=== PATIENT | female | born 1935 | race Asian ===

== ENCOUNTER 2017-06-06 11:55 | Inpatient (IN) | payer MEDICARE, OTHER ==
[~2017-06-06] VITALS: Ht 157.5 cm; Wt 46.3 kg
[2017-06-06 11:59] VITALS: BP 178/71; PULSE 64; RESP 17; O2SAT 98
--- NOTE | 2017-06-06 12:05 | ED.REPORT ---
HPI-Extremity Problem Lower Date of Service Jun 06, 2017 ED Provider: History of Present Illness: 81-year-old female here for right hip pain. 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 She states she was not dizzy, she tripped over a concrete. She has never fractured her hip, pelvis, or femur in the past. She has no known history of osteoporosis. She has pain in her lateral and medial upper thigh. Denies numbness or tingling or loss of bowel and bladder. No back pain. PCP Dr. Campbell in [place]. Last ate 8 AM. Nursing Notes Stated Complaint: GL FALL HIP PAIN Nursing Notes Reviewed: Yes Allergies: Coded Allergies: atenolol (Verified Allergy, Severe, tongue swelling, 06/06/17) Contrast Media (Verified Allergy, Unknown, STATES WAS TOLD BY STAFF SHE HAD REACTION TO PO CONTRAST, 06/06/17) Uncoded Allergies: UNKNOWN (Allergy, Unknown, 06/06/17) Scheduled Amlodipine (Amlodipine) 5 Mg Tablet 5 MG PO HS PLEASE CRUSH AND GIVE W/ APPLESAUCE Aspirin Chew (Aspirin Chew) 81 Mg Chew 81 MG PO HS PLEASE CRUSH AND GIVE W/ APPLESAUCE Clonidine (Clonidine) 0.1 Mg Tablet 0.1 MG PO HS PLEASE CRUSH AND GIVE W/ APPLESAUCE Cyanocobalamin (Vitamin B-12) (Vitamin B-12) 1,000 Mcg/1 Ml Drops 1,000 MCG PO QAM Hydrochlorothiazide (Hydrochlorothiazide) 25 Mg Tablet 25 MG PO QAM PLEASE CRUSH AND GIVE W/ APPLESAUCE Lisinopril (Lisinopril) 40 Mg Tablet 40 MG PO QAM PLEASE CRUSH AND GIVE W/ APPLESAUCE Metformin (Metformin) 500 Mg Tablet 500 MG PO BIDWM PLEASE CRUSH AND GIVE W/ APPLESAUCE Metoprolol Tartrate (Metoprolol Tartrate) 25 Mg Tablet 12.5 MG PO QAM PLEASE CRUSH AND GIVE W/ APPLESAUCE Pediatric Multivit Comb No.42 (Flintstones) 1 Each Tab.chew 1 EACH PO QAM PLEASE CRUSH AND GIVE W/ APPLESAUCE Potassium Chloride ER (Potassium Chloride ER) 10 Meq Tablet 10 MEQ PO BIDWM PLEASE CRUSH AND GIVE W/ APPLESAUCE Scheduled PRN Fluticasone Propionate (Fluticasone Propionate) 50 Mcg/Actuation [place].susp 1 SPRAY NS DAILY PRN PRN RHIN[place]A General Time Seen by MD: 11:59 Chief Complaint Hip injury right Hx Obtained From: Patient Arrived By: Ambulance Onset Occurred: Just prior to arrival Symptom Duration: Constant Caused by: Fall on ground Location: : Hip right Severity: Current: Moderate Severity: Maximum: Severe Pertinent Negative: Pt denies other symptoms Exacerbated by: Range of motion Recent Healthcare: No recent doctor visit Similar Sx Previous: No Past Medical History Past Medical History Notes: stomach ca- stomach removed 10/2016, HTN, DM, rapid heart rate Review of Systems Basic Review of Systems Respiratory: No shortness of breath Cardiovascular: No chest pain GI: No abdominal pain Psychiatric: Normal thought content Constitutional: Denies: Fatigue Musculoskeletal: Reports: Extremity pain, Joint pain, Denies: Back pain, Extremity swelling, Lumbar pain Neurologic: Denies: Change LOC, Confusion, Dizziness, Headache, Lightheaded Complete sys rev & neg: except as marked. Eyes: Denies: Blurred bilateral Cardiovascular: Denies: Chest pain, Dyspnea on exertion GI: Denies: Abdominal pain Physical Exam Initial Vital Signs Vital Signs (First) Date Time Temp Pulse Resp B/P Pulse Ox O2 Delivery O2 Flow Rate FiO2 06/06/17 11:59 36.7 64 17 178/71 98 Room Air Initial VS: Reviewed, Vital signs normal General/Constitutional: Well-developed, Well-nourished Head / Eyes: Atraumatic, Normocephalic, PERRL Neck: Supple, Non-tender, Full range of motion Respiratory: Breath sounds normal, Clear to auscultation, No respiratory distress Cardiovascular: Regular rate & rhythm, Intact distal pulses Abdomen / GI: Soft, Non-tender, No guarding, No rebound, No distention Skin: Warm, Dry, No cyanosis Neurologic: Alert, Oriented, Nonfocal Psychiatric: Mood/affect normal, Behavior normal, Normal thought content Pelvis: Positive: Tender anterior Right Hip: Positive: Leg externally rotated, Leg shortened, ROM reduced..., Tenderness present... (Severe), Unable to bear weight, Negative: Ecchymosis present, Erythema present, Warmth present Left Thigh: Positive: Tenderness present... (Moderate) Joint above & below: affected area is NL. Heart Sounds / Murmur: Positive: Murmur present... (III/), Systolic murmur present.. (III/) Skin: Color NL, Warm, Dry, Intact, Turgor NL, No swelling Neurologic: Oriented X3, Speech NL, No motor deficits, No sensory deficits Interpretation & Diagnostics Lab Results Interpretation Result Diagram: 06/06/17 1219 06/06/17 1219 Test 06/06/17 12:18 06/06/17 12:19 06/06/17 13:15 Hold Purple Top Tube Received (Received) Hold Blue Top Tube Received (Received) Hold [place] Top Tube Received (Received) White Blood Count 8.5th/mm3 (3.8-10.1) Red Blood Count 4.55mil/mm3 (3.90-5.20) Hemoglobin 14.1g/dL (12.0-15.6) Hematocrit 42.4% (35.0-46.0) Mean Corpuscular Volume 93.2fL (81-100) Mean Corpuscular Hemoglobin 31.0pg (27.0-35.0) Mean Corpuscular Hemoglobin Concent 33.3% (32.0-37.0) Red Cell Distribution Width 12.0% (12.3-15.4) Platelet Count 294bil/L (150-400) Neutrophils (%) (Auto) 51.3% (40-74) Lymphocytes (%) (Auto) 31.7% (14-46) Monocytes (%) (Auto) 10.8% (4-12) Eosinophils (%) (Auto) 5.2% (0-5) Basophils (%) (Auto) 0.5% (0-3) Sodium Level 141mEq/L (134-144) Potassium Level 3.8mEq/L (3.5-5.2) Chloride Level 102mEq/L (97-108) Carbon Dioxide Level 26mmol/L (18-29) Blood Urea Nitrogen 19mg/dL (8-27) Creatinine 0.46mg/dL (0.57-1.00) Estimat Glomerular Filtration Rate 187mL/min (>59) Glucose Level 99mg/dL (60-99) Calcium Level 9.8mg/dL (8.5-10.1) Total Bilirubin 0.4mg/dL (0.0-1.2) Aspartate Amino Transf (AST/SGOT) 24U/L (0-50) Alanine Aminotransferase (ALT/SGPT) 19U/L (0-32) Alkaline Phosphatase 89U/L (25-165) Total Protein 8.0g/dL (6.4-8.4) Albumin 4.5g/dL (3.4-5.0) Hold Urine Received (Received) ECG Interpretation ECG Interpretation: Sinus rate 62 Old Q-waves in lead 3, AVF old inferior infarct Time: 14:29 Interpreted by: ED physician X-Ray Chest Interpretation Chest Xray Interpretation: PROCEDURE: X-RAY CHEST ONE VIEW ([id number]) INDICATIONS: PRE OP TECHNIQUE: One view of the chest was acquired. COMPARISON: None. FINDINGS: Surgical changes and devices: None. Lungs and pleura: No pleural effusions or pneumothorax. Lungs are clear. Mediastinum: Mediastinal contours appear normal. Heart size is normal. Bones and chest wall: No suspicious bony lesions. Overlying soft tissues appear unremarkable. IMPRESSION: No acute process. X-Ray Interpretation Xray Interpretation: PROCEDURE: X-RAY RIGHT HIP COMPLETE, MINIMUM TWO VIEWS ([id number]) INDICATIONS: pain TECHNIQUE: 2 views of the hip were acquired. COMPARISON: None. FINDINGS: Bones: Moderately displaced right femoral neck fracture. Soft tissues: No suspicious soft tissue calcifications or masses. IMPRESSION: Right femoral neck fracture. Re-Eval/Medical Decision Re-Evaluation/Progress : Time of Eval: 14:15 Re-Evaluation/Progress Note: Discussed plan for admission and possible surgery. Patient understands and agrees with plan. All questions addressed at this time. 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 Consultation #2: Referral / Consult Name: Srikanth Reyna MD Consulted With: Orthopedic Call Returned at: 16:47 Door Closer Mechanic: Will see patient, Agrees with plan, Requested OR Counseled Regarding: Diagnosis, Lab results, Need for admission Discharge & Departure Impression: Primary Impression: Hip fracture, right Encounter type: initial encounter Fracture type: closed Qualified Code: S72.001A - Fracture of unspecified part of neck of right femur, initial encounter for closed fracture Disposition: ADMITTED TO HOSPITAL Discharge Condition All VS Reviewed: Yes Condition: Stable Referrals: Tamra Campbell MD (PCP) copies to: Tamra Campbell MD, Linnea K ARNP Jun 06, 2017 12:05 DANIA SANTO Jun 06, 2017 14:31 MARTHA VILLALPANDO Jun 06, 2017 15:22
[2017-06-06 12:29] LABS: BASOPHILS % (AUTO) 0.5 % (0-3); EOSINOPHILS % (AUTO) 5.2 % (0-5); MONOCYTES % (AUTO) 10.8 % (4-12); Mean Corpuscular Volume 93.2 fL (81-100); NEUTROPHILS % (AUTO) 51.3 % (40-74); Platelet Count 294 bil/L (150-400)
--- NOTE | 2017-06-06 12:44 | DRSVH ---
PROCEDURE: X-RAY RIGHT HIP COMPLETE, MINIMUM TWO VIEWS ([id number]) INDICATIONS: pain TECHNIQUE: 2 views of the hip were acquired. COMPARISON: None. FINDINGS: Bones: Moderately displaced right femoral neck fracture. Soft tissues: No suspicious soft tissue calcifications or masses. IMPRESSION: Right femoral neck fracture. Dictated by: Jere Weaver M.D. on 06/06/2017 at 12:42 Approved by: Jere Weaver M.D. on 06/06/2017 at 12:43
--- NOTE | 2017-06-06 12:45 | DRSVH ---
PROCEDURE: X-RAY CHEST ONE VIEW ([id number]) INDICATIONS: PRE OP TECHNIQUE: One view of the chest was acquired. COMPARISON: None. FINDINGS: Surgical changes and devices: None. Lungs and pleura: No pleural effusions or pneumothorax. Lungs are clear. Mediastinum: Mediastinal contours appear normal. Heart size is normal. Bones and chest wall: No suspicious bony lesions. Overlying soft tissues appear unremarkable. IMPRESSION: No acute process. Dictated by: Jere Weaver M.D. on 06/06/2017 at 12:43 Approved by: Jere Weaver M.D. on 06/06/2017 at 12:43
[2017-06-06] MEDS ORDERED: fentaNYL-PF 50 mCg/mL 2 mL Inj IVPUSH ONE (13:00)
[2017-06-06 13:35] VITALS: BP 176/69; PULSE 68; RESP 17; O2SAT 97
[2017-06-06] MEDS ORDERED: HYDR25TA4 PO (14:39)
[2017-06-06] MEDS ORDERED: CLON0.1T PO (14:39)
[2017-06-06] MEDS ORDERED: PEDI1TAB PO (14:39)
[2017-06-06] MEDS ORDERED: LISI40TA PO (14:39)
[2017-06-06] MEDS ORDERED: FLUT15.88 NS (14:39)
[2017-06-06] MEDS ORDERED: POTA10TA12 PO (14:39)
[2017-06-06] MEDS ORDERED: CYAN100085 PO (14:39)
[2017-06-06] MEDS ORDERED: AMLO5TAB2 PO (14:39)
[2017-06-06] MEDS ORDERED: METO25TA6 PO (14:39)
[2017-06-06] MEDS ORDERED: METF500T4 PO (14:39)
[2017-06-06] MEDS ORDERED: ASPI81TA3 PO (14:40)
[2017-06-06] MEDS ORDERED: Ondansetron 2 mg/mL 2 mL Inj IVPUSH PRN (15:15)
[2017-06-06] MEDS ORDERED: Alum-Mag Hydrox-Simeth 30 mL Suspension PO PRN (15:15)
[2017-06-06] MEDS ORDERED: Polyethylene Glycol (PEG) 17 Gm Powder PO PRN (15:15)
[2017-06-06] MEDS: Dextrose 5% 0.45% NaCl 1,000 ML IV SCH ×2 (15:34→23:38)
[2017-06-06 15:35] VITALS: BP 157/74; PULSE 75; RESP 16; O2SAT 95
--- NOTE | 2017-06-06 15:36 | PCM.HPMED ---
Subjective Date of Service Jun 06, 2017 Primary Provider: Admitting Physician: Primary Care Physician: Tamra Campbell MD Attending Physician: Chief Complaint: Hip pain History of Present Illness: 81-year-old female with a history of gastric cancer post gastrectomy last October, hypertension, and diabetes presents to the emergency department after a ground-level fall onto concrete. Per the patient she was carrying a large bucket of water into her friend's house when she tripped on a concrete step and fell on her right hip. She denies any syncope, dizziness, lightheadedness, or hitting her head. She states is the first hip fracture she has suffered but in the past year she has fractured a bone in her lower right extremity, as well as reported fracture in T10. Patient is not on any calcium or vitamin D supplements except for [place] vitamin. She had a recent bone density scan which shows osteopenia and osteoporosis of spine, as well as a 13.9% of major osteoporotic fracture, and a 4.9% chance of hip fracture. Patient denies all other review of systems, including chest pain, racing heartbeat, numbness/ tingling, shortness of breath. In the ED the patient underwent 2 view of the right hip which showed right femoral neck fracture. Dr. Reyna from orthopedics was paged by the emergency department and we currently await a call back. Patient has not eaten since this morning. Review of Systems: Complete review of systems performed; pertinent positives and negatives per history of present illness Allergies Coded Allergies: atenolol (Verified Allergy, Severe, tongue swelling, 06/06/17) Contrast Media (Verified Allergy, Unknown, STATES WAS TOLD BY STAFF SHE HAD REACTION TO PO CONTRAST, 06/06/17) Uncoded Allergies: UNKNOWN (Allergy, Unknown, 06/06/17) Home Medications Amlodipine (Amlodipine) 5 Mg Tablet 5 MG PO HS Aspirin Chew (Aspirin Chew) 81 Mg Chew 81 MG PO HS Clonidine (Clonidine) 0.1 Mg Tablet 0.1 MG PO HS Cyanocobalamin (Vitamin B-12) (Vitamin B-12) 1,000 Mcg/1 Ml Drops 1,000 MCG PO QAM Hydrochlorothiazide (Hydrochlorothiazide) 25 Mg Tablet 25 MG PO QAM Lisinopril (Lisinopril) 40 Mg Tablet 40 MG PO QAM Metformin (Metformin) 500 Mg Tablet 500 MG PO BIDWM Metoprolol Tartrate (Metoprolol Tartrate) 25 Mg Tablet 12.5 MG PO QAM Pediatric Multivit Comb No.42 (Flintstones) 1 Each Tab.chew 1 EACH PO QAM Potassium Chloride ER (Potassium Chloride ER) 10 Meq Tablet 10 MEQ PO BIDWM PMH Stomach cancer, unspecified, S/P gastrectomy October [address] [facility] Hypertension Diabetes mellitus type II on metformin Surgical History Gastrectomy October 2016 Family History Father had prostate and colon cancer Mother had heart disease, stroke, hypertension Sister had ovarian cancer Social History Hx Alcohol Use: No Hx Substance Use: No Hx Tobacco Use: Yes (18-shzz-igng history) Living Arrangement: with Family (at home with her Bill) Exam Vital Signs Vital Sign - Last Date Time Temp Pulse Resp B/P Pulse Ox O2 Delivery O2 Flow Rate FiO2 06/06/17 13:35 68 17 176/69 97 Room Air 06/06/17 11:59 36.7 Exam General: Pleasant appearing female, no acute distress HEENT: PERRLA, EOMI, nonicteric, membranes moist Lymph: No lymphadenopathy Cardio: Regular rate and rhythm; 2/6 systolic murmur Respiratory: CTA bilaterally, no wheezes, no crackles Abdomen: Soft, positive bowel sounds, nontender, nondistended; healed epigastric scar Extremities: No edema, sensation intact; pulses intact throughout; Psych: Appropriate mood and affect Neuro: CN II through XII grossly intact, sensation intact throughout Skin: No rash Musculoskeletal: Mildly tender over the right hip; moderate to severely painful in the right hip on any internal rotation of the right lower extremity Lab and Diagnostics Result Diagram: 06/06/17 1219 06/06/17 1219 X-Rays, CTs and MRIs X-ray right hip 2 view IMPRESSION: Right femoral neck fracture. Dictated by: Jere Weaver M.D. on 06/06/2017 at 12:42 chest x-ray Chest x-ray IMPRESSION: No acute process. Dictated by: Jere Weaver M.D. on 06/06/2017 at 12:43 12-lead ECG Sinus rhythm without concerning ST waves Assessment & Plan 81-year-old female who presented to the hospital after a ground-level fall onto concrete with confirmed right hip fracture Acute Right hip fracture; was on medicine; ongoing -Confirmed ground-level fall without reported syncope or loss of consciousness -Confirmed by two-view right hip x-ray -Dr. Reyna was paged from the ED and we await his call back -Patient currently nothing by mouth; last ate at 8 AM -Acetaminophen for mild pain, morphine for moderate -Await surgical evaluation -Bedrest -Currently not on DVT prophylaxis due to possibility for surgery today -Vit D levels ordered Hypertension, chronic; is on medicine; ongoing -Patient presented with a SBP greater than 170 due to pain -Patient takes clonidine, amlodipine, hydrochlorothiazide, and lisinopril at home -Continue his medications as confirmed -Labetalol for blood pressure greater than 180 and pulse not less than 70 Diabetes mellitus2; present on admission; stable -Patient takes metformin only as outpatient -No A1c and record; ordered today -Stop metformin -Place patient on low correctional and add basal tomorrow Reported episodes of tachycardia; chronic -Patient is on metoprolol -EKG revealed sinus rhythm with heart rate 62 -Continue metoprolol Disposition: Patient is being admitted to inpatient status with expected length of stay greater than two midnights due to to severity of presentation, duration of treatment, and risks of adverse events Patient is full code until brings in her advanced directives Pain Evaluation: Adequate Pain Control GI Prophylaxis: Not indicated Resuscitation Status: CPR: Attempt Resuscitation Attending Statement Patient seen and examined. Agree with resident's assessment and plan. Santiago Joshi DO Jun 06, 2017 15:36 Reg Ramirez MD Jun 06, 2017 20:25
[2017-06-06 16:05] VITALS: BP 178/95; PULSE 71; RESP 18; O2SAT 98
[2017-06-06] MEDS ORDERED: MeTOProlol 1 mg/mL 5 mL Inj IV PRN (17:15)
[2017-06-06] MEDS ORDERED: Glucose 40% Oral Gel 15 Gm Tube PO PRN (18:20)
--- NOTE | 2017-06-06 18:41 | NUR ---
Admit Pt arrived on unit at 1605 from ED on [facility] [address] [facility], slide board used to transfer pt and she was 10/10 pain afterwards. Repositioned pt, given warm blankets and offered ice, which pt declined. Pain quickly decreased and pt declined medications saying "I'm not hurting unless I move." BP was elevated, but pt has not taken daily BP meds for HTN and was in pain. aware. RA, IV fluids infusing, KHALIL. Pt oriented to room and call light. Care continues.
[2017-06-06 19:28] LABS: APPEARANCE,URINE CLEAR (CLEAR,HAZY); COLOR,URINE STRAW (YELLOW); OCCULT BLOOD,URINE TRACE (NEGATIVE); UROBILINOGEN,URINE NORMAL (NORMAL)
[2017-06-06] MEDS ORDERED: Labetalol 5 mg/mL 4 mL Inj IVPUSH ONE (20:30)
[2017-06-06] MEDS: cloNIDine 0.1 mg Tablet PO SCH (20:35)
[2017-06-06 21:25] VITALS: BP_SYST 151; BP_SYST 166; BP_DIAS 64; BP_DIAS 74; PULSE 72; PULSE 78; RESP 18; RESP 20; O2SAT 92; O2SAT 93
[2017-06-06] MEDS: Insulin LISPRO 300 Unit/3 mL Inj SUBQ SCH (22:00)
[2017-06-07] VITALS (13 sets, daily range): BP systolic 122–199; BP diastolic 65–86; PULSE 60–72; RESP 12–20; O2SAT 95–98
--- NOTE | 2017-06-07 04:35 | NUR ---
Pain pt has declined pain medications all shift. upon assessment she has looked uncomfortable as if she is trying to stay as still as possible. However nurse has offered her pain medication at every rounding and pt has refused. she says she is only in pain if she moves otherwise she is fine. circulation to RLE is intact. pt will be made NPO at 0600 this AM. bed in low position, call light within reach. care continues.
[2017-06-07 05:15] LABS: BASOPHILS % (AUTO) 0.4 % (0-3); EOSINOPHILS % (AUTO) 4.3 % (0-5); MONOCYTES % (AUTO) 9.6 % (4-12); Mean Corpuscular Hemoglobin 30.5 pg (27.0-35.0); Mean Corpuscular Volume 91.4 fL (81-100); NEUTROPHILS % (AUTO) 68.7 % (40-74); Platelet Count 252 bil/L (150-400)
--- NOTE | 2017-06-07 07:43 | PCM.PNMED ---
Subjective Date of Service Jun 07, 2017 Subjective Patient seen and examined today. Anxious to get surgery. Vitals stable. Exam Vital Signs Vital Sign - Last Date Time Temp Pulse Resp B/P Pulse Ox O2 Delivery O2 Flow Rate FiO2 06/07/17 05:05 36.7 66 18 164/83 97 Room Air Intake and Output 06/06/17 06/06/17 06/07/17 Cumulative From/Thru 15:00 23:00 07:00 06/06/17 11:59 - 06/07/17 06:04 Intake Total 288 ml 1300 ml 1588 ml Output Total 1100 ml 2500 ml 3600 ml Balance -812 ml -1200 ml -2012 ml Intake Oral 200 ml 200 ml IV Total 288 ml 1100 ml 1388 ml Output Urine Total 1100 ml 2500 ml 3600 ml Lab and Diagnostics Result Diagram: 06/07/17 0442 06/07/17 0442 X-Rays, CTs and MRIs X-ray right hip 2 view IMPRESSION: Right femoral neck fracture. Dictated by: Jere Weaver M.D. on 06/06/2017 at 12:42 chest x-ray Chest x-ray IMPRESSION: No acute process. Dictated by: Jere Weaver M.D. on 06/06/2017 at 12:43 12-lead ECG Sinus rhythm without concerning ST waves Assessment & Plan 81-year-old female who presented to the hospital after a ground-level fall onto concrete with confirmed right hip fracture Acute Right hip fracture; was on medicine; ongoing -Confirmed ground-level fall without reported syncope or loss of consciousness -Confirmed by two-view right hip x-ray -Dr. Reyna was contacted from ED, awaiting assessment and plan -Patient currently nothing by mouth -Acetaminophen for mild pain, morphine for moderate -Await surgical evaluation -Bedrest -Currently not on DVT prophylaxis due to possibility for surgery today -Vit D levels ordered Hypertension, chronic; is on medicine; ongoing -Patient presented with a SBP greater than 170 due to pain -Patient takes clonidine, amlodipine, hydrochlorothiazide, and lisinopril at home -Continue his medications as confirmed -Metoprolol for blood pressure greater than 180 and pulse not less than 70 Diabetes mellitus2; present on admission; stable -Patient takes metformin only as outpatient -No A1c and record; ordered today -Stop metformin -Place patient on low correctional and add basal tomorrow Reported episodes of tachycardia; chronic -Patient is on metoprolol -EKG revealed sinus rhythm with heart rate 62 -Continue metoprolol Asymptomatic bacteriuria - patient asymptomatic - wbc count in urine low - will observe Disposition: Patient is being admitted to inpatient status with expected length of stay greater than two midnights due to to severity of presentation, duration of treatment, and risks of adverse events Patient is full code until brings in her advanced directives Pain Evaluation: Adequate Pain Control GI Prophylaxis: Not indicated Resuscitation Status: CPR: Attempt Resuscitation Time spent 35 mins Reg Ramirez MD Jun 07, 2017 07:43
[2017-06-07] MEDS: Insulin LISPRO 300 Unit/3 mL Inj SUBQ SCH ×4 (07:52→22:00)
[2017-06-07] MEDS: Dextrose 5% 0.45% NaCl 1,000 ML IV SCH (08:03)
[2017-06-07] MEDS ORDERED: Propofol 10,000 mCg/mL 20 mL Inj ONE (08:12)
[2017-06-07] MEDS ORDERED: Dexamethasone 4 mg/mL Inj ONE (08:12)
[2017-06-07] MEDS ORDERED: Ondansetron 2 mg/mL 2 mL Inj ONE (08:12)
[2017-06-07] MEDS ORDERED: fentaNYL-PF 50 mCg/mL 2 mL Inj ONE (08:12)
--- NOTE | 2017-06-07 14:26 | NUR ---
Off unit Preparing pt to go off unit and BP was taken 199/88. Called OR to notify and anesthesiologist notified. Pt s/l and report given to OR, RN. Pt having no pain unless moved and declines medications, she is very worried about getting addicted to pain meds. Educated pt this AM about that. A&O x 3, SIMRAN.
--- NOTE | 2017-06-07 15:06 | PCM.HPANE ---
Patient Data Date of Service: Jun 07, 2017 Surgeon Admitting Provider:Reg Ramirez MD Attending Provider:Reg Ramirez MD Primary Care Physician:Tamra Campbell MD Other Provider: Reason for Visit Left Hip Fx Ht/WT & BMI Height (Feet): 5 Height (Inches): 2.00 Weight (Kilograms): 46.266 Body Mass Index 18.77 Allergies Coded Allergies: atenolol (Verified Allergy, Severe, tongue swelling, 06/06/17) Contrast Media (Verified Allergy, Unknown, STATES WAS TOLD BY STAFF SHE HAD REACTION TO PO CONTRAST, 06/06/17) Uncoded Allergies: UNKNOWN (Allergy, Unknown, 06/06/17) Past Anesthesia History Anesthesia History: Denies:: Abnormal Airway, Anesthesia Reactions, Difficult Intubation, Fam Anesthesia Reaction, Fam Malignant Hypertherm, Malignant Hyperthermia Diabetes History Hx Diabetes?: Yes (II) Current Bedside Blood Glucose: 119 MRSA MRSA: No Medications Hypertension Medication: Yes Home Meds Incl Beta Vesna: Yes Date Beta Vesna Taken: Jun 07, 2017 Time Beta Vesna Taken: 08:00 Reported Medications Aspirin Chew 81 Mg Chew81 Mg PO HS Ref 0 PLEASE CRUSH AND GIVE W/ APPLESAUCE 06/06/17 Pediatric Multivit Comb No.42 (Flintstones)1 Each Tab.chew1 Each PO QAM PLEASE CRUSH AND GIVE W/ APPLESAUCE 06/06/17 Cyanocobalamin (Vitamin B-12) (Vitamin B-12)1,000 Mcg/1 Ml Drops1,000 Mcg PO QAM 06/06/17 Lisinopril 40 Mg [id number] Mg PO QAM 30 Days Ref 0 PLEASE CRUSH AND GIVE W/ APPLESAUCE 06/06/17 Metoprolol Tartrate 25 Mg Naggkl28.5 Mg PO QAM 30 Days Ref 0 PLEASE CRUSH AND GIVE W/ APPLESAUCE 06/06/17 Hydrochlorothiazide 25 Mg [id number] Mg PO QAM 30 Days Ref 0 PLEASE CRUSH AND GIVE W/ APPLESAUCE 06/06/17 Potassium Chloride ER 10 Meq [id number] Meq PO BIDWM Ref 0 PLEASE CRUSH AND GIVE W/ APPLESAUCE 06/06/17 Metformin 500 Mg [id number] Mg PO BIDWM Ref 0 PLEASE CRUSH AND GIVE W/ APPLESAUCE 06/06/17 Fluticasone Propionate 50 Mcg/Actuation Rolling[place].susp1 [place] NS DAILY PRN RHINOREA 06/06/17 Clonidine 0.1 Mg Tablet0.1 Mg PO HS Ref 0 PLEASE CRUSH AND GIVE W/ APPLESAUCE 06/06/17 Amlodipine 5 Mg Tablet5 Mg PO HS Ref 0 PLEASE CRUSH AND GIVE W/ APPLESAUCE 06/06/17 History History of ENT Problems?: No HEENT History: Denies:: Abnormal Airway Cataracts Difficult Intubation Dysphagia Glaucoma Hearing Problem Sinus Problem Denture Type: None Teeth Condition: Within Normal Limits Hx of Heart Problems?: No Cardiovascular History: Positive for:: Heart Murmur Hypertension Denies:: Cardiac Surgery Congestive Heart Failure Pacemaker Hx of Respiratory Problem?: No Respiratory History: Denies:: Asthma COPD Tuberculosis Hx Neurologic Problems?: No Neurological History: Denies:: CVA Dementia Headaches Seizures Hx of GI Problems?: No Other GI Pertinent History: 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, 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 Hx of Problems?: No Genitourinary History: Denies:: HX of Hemodialysis Kidney Stones Urinary Tract Infection HX of Peritoneal Dialysis: No Female Hx: Denies:: Currently Hx Musculoskeletal Problems?: No Musculoskeletal History: Positive for:: Back Injury (2 months ago) Denies:: Joint Replacement Psycho Social History: Positive for:: Anxiety Denies:: Hx Depression Suicide Attempt Hx Surgeries?: Yes (stomach surgery) Hx Any Other Health Problems?: Yes Other History: 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 Denies:: Blood Transfusions Hx Diabetes: Yes (II)Bedside Blood Glucose: 119 Hx Alcohol Use: NoHx Substance Use: No Stop/Bang Treated for Sleep Apnea?: No S-Snoring: Do You Snore Loudly: No T-Tired: feel tired, fatigued: Yes O-Obsered: Observed not breath: No P-Blood Pressure: treated: Yes B- Body Mass Index > 35 kg/m2: No A- Age over 50: Yes N- Neck Large Circumference: No G- Gender Male: No NADEEN Total Score: 2 NADEEN Risk Assessment: Low Risk, <3 Yes Risk Assessment Category Category 1A: Patient has history of documented sleep apnea, and HAS NOT received any narcotic, sedative or anesthesia administration during this stay. Category 1B: Patient has history of documented sleep apnea, and HAS received any narcotic , sedative or anesthesia administration during this stay Category 2: Patient has SUSPECTED Obstructive Sleep Apnea, and HAS received any narcotic , sedative or anesthesia administration during this stay. Category 3: Patient has SUSPECTED Obstructive Sleep Apnea and HAS NOT received narcotic, sedative or anesthesia administration during this stay. Category 4: Outpatient in Procedural Areas with known sleep apnea or who screen positive for High Risk via the STOP/BANG questionnaire. Exam Exam Vital Signs Vital Signs Date Time Temp Pulse Resp B/P Pulse Ox O2 Delivery O2 Flow Rate FiO2 06/07/17 08:18 160/77 General Appearance: Alert, Oriented X3, Cooperative, No Acute Distress HEENT/AIRWAY: MP 2 Lungs: Normal Air Movement Heart: Exam Unremarkable Meds/Labs/Diagnostics Admission Meds Current Medications Dextrose/Sodium Chloride (D5 1/2 Normal Saline) 1,000 ml @ 125 mls/hr Q8H IV Last administered on 06/07/17 08:03; Start 06/06/17 at 15:20 Amlodipine Besylate (Norvasc) 5 mg HS PO Last administered on 06/06/17 20:35; Start 06/06/17 at 21:00 Aspirin (Aspirin Chewable) 81 mg HS PO Last administered on 06/06/17 20:35; Start 06/06/17 at 21:00 Clonidine (Catapres) 0.1 mg HS PO Last administered on 06/06/17 20:35; Start 06/06/17 at 21:00 Hydrochlorothiazide (Hydrodiuril) 25 mg DAILY PO Last administered on 08:03; Start 06/07/17 at 08:30 Lisinopril (Zestril) 40 mg DAILY PO Last administered on 06/07/17 08:03; Start 06/06/17 at 18:44 Metoprolol Tartrate (Lopressor) 12.5 mg DAILY PO Last administered on 08:03; Start 06/06/17 at 18:44 Bedside Blood Glucose: 119 Labs Test 06/06/17 12:18 06/06/17 13:15 06/06/17 19:07 06/07/17 04:42 Hold Purple Top Tube Received (Received) Hold Blue Top Tube Received (Received) Hold [place] Top Tube Received (Received) Hold Urine Received (Received) Urine Color Straw (YELLOW) Urine Appearance Clear (CLEAR,HAZY) Urine pH 7.0 (5.0-8.0) Urine Specific [place] 1.005 (1.003-1.035) Urine Protein Negativemg/dL (NEG,TRACE) Urine Glucose (UA) 1000mg/dL (NEGATIVE) Urine Ketones Negativemg/dL (NEGATIVE) Urine Occult Blood Trace (NEGATIVE) Urine Nitrite Negative (NEGATIVE) Urine Bilirubin Negative (NEGATIVE) Urine Urobilinogen Normalmg/dL (NORMAL) Urine Leukocyte Esterase Small (NEGATIVE) Urine RBC 3-10/hpf (0-2) Urine WBC 6-10/hpf (0-5) Urine Epithelial Cells Occasional/hpf (NONE-MOD) Urine Crystals None seen (NONE SEEN) Urine Bacteria Few/hpf (NONE-FEW) Urine Hyaline Casts None/lpf (NONE) Urine Granular Casts None seen (NONE SEEN) Urine Waxy Casts None seen (NONE SEEN) Urine Red Blood Cell Casts None seen (NONE SEEN) Urine White Blood Cell Casts None seen (NONE SEEN) Urine Mucus None seen (None Seen) Urine Trichomonas None seen (NONE SEEN) Urine Yeast None (NONE SEEN) Urinalysis Comment None Urine Culture Reflexed Indicated White Blood Count 8.9th/mm3 (3.8-10.1) Red Blood Count 4.30mil/mm3 (3.90-5.20) Hemoglobin 13.1g/dL (12.0-15.6) Hematocrit 39.3% (35.0-46.0) Mean Corpuscular Volume 91.4fL (81-100) Mean Corpuscular Hemoglobin 30.5pg (27.0-35.0) Mean Corpuscular Hemoglobin Concent 33.3% (32.0-37.0) Red Cell Distribution Width 12.0% (12.3-15.4) Platelet Count 252bil/L (150-400) Neutrophils (%) (Auto) 68.7% (40-74) Lymphocytes (%) (Auto) 16.8% (14-46) Monocytes (%) (Auto) 9.6% (4-12) Eosinophils (%) (Auto) 4.3% (0-5) Basophils (%) (Auto) 0.4% (0-3) Sodium Level 140mEq/L (134-144) Potassium Level 3.5mEq/L (3.5-5.2) Chloride Level 103mEq/L (97-108) Carbon Dioxide Level 25mmol/L (18-29) Blood Urea Nitrogen 8mg/dL (8-27) Creatinine 0.40mg/dL (0.57-1.00) Estimat Glomerular Filtration Rate 219mL/min (>59) Glucose Level 137mg/dL (60-99) Calcium Level 9.3mg/dL (8.5-10.1) Magnesium Level 1.7mg/dL (1.6-2.6) Total Bilirubin 0.7mg/dL (0.0-1.2) Aspartate Amino Transf (AST/SGOT) 16U/L (0-50) Alanine Aminotransferase (ALT/SGPT) 15U/L (0-32) Alkaline Phosphatase 77U/L (25-165) Total Protein 6.6g/dL (6.4-8.4) Albumin 3.9g/dL (3.4-5.0) Plan Impression Patient chart reviewed, patient interviewed and anesthestic plan with risks, benefits, and alternatives discussed, and informed consent obtained. NPO per Anesth. Guidelines: Yes ASA Physical Status: ASA2 Mod Systemic Disease Anesthetic Plan: GA Bene/Risks/Altern/Consents: Yes HP Complete Prior to Induction: Yes Richard Wang MD Jun 07, 2017 13:33
[2017-06-07] MEDS ORDERED: Lactated Ringer's 500 ML IV PRN (15:09)
[2017-06-07] MEDS ORDERED: Lactated Ringer's 1,000 ML IV SCH (15:09)
[2017-06-07] MEDS ORDERED: Ondansetron 2 mg/mL 2 mL Inj IVPUSH PRN ×2 (15:10→16:30)
[2017-06-07] MEDS ORDERED: MetoCLOpramide 5 mg/mL 2 mL Inj IVPUSH PRN ×2 (15:10→16:30)
[2017-06-07] MEDS ORDERED: Labetalol 5 mg/mL 4 mL Inj IV PRN (15:10)
[2017-06-07] MEDS ORDERED: HYDROmorphone 1 mg/mL Inj IVPUSH PRN (15:10)
[2017-06-07] MEDS ORDERED: Atropine 0.4 mg/mL Inj IVPUSH PRN (15:10)
[2017-06-07] MEDS ORDERED: Dexamethasone 4 mg/mL Inj IVPUSH PRN (15:10)
[2017-06-07] MEDS ORDERED: fentaNYL-PF 50 mCg/mL 2 mL Inj IVPUSH PRN (15:10)
[2017-06-07] MEDS ORDERED: EPHEDrine Sulfate 50 mg/mL Inj IVPUSH PRN (15:10)
[2017-06-07] MEDS ORDERED: Lactated Ringer's 1,000 ML IV ONE (15:10)
[2017-06-07] MEDS ORDERED: Phenylephrine 10,000 mCg/mL Inj IVPUSH PRN (15:10)
[2017-06-07] MEDS ORDERED: Tranexamic Acid 100 mg/mL 10 mL Inj ONE ×2 (15:33→15:35)
[2017-06-07] MEDS ORDERED: 0.9% Sodium Chloride 100 ML ONE ×2 (15:33→15:35)
[2017-06-07] MEDS ORDERED: Bupivacaine-MPF 0.25%/EPI 30 mL Inj INFILTRATE ONE (16:17)
[2017-06-07] MEDS ORDERED: Polyethylene Glycol (PEG) 17 Gm Powder PO PRN (16:30)
[2017-06-07] MEDS ORDERED: Magnesium Hydroxide 10 mL Oral Concentration PO PRN (16:30)
[2017-06-07] MEDS ORDERED: Vancomycin Dose per Pharmacist XX ONE (16:30)
[2017-06-07] MEDS ORDERED: diphenhydrAMINE 25 mg Capsule PO PRN (16:30)
[2017-06-07] MEDS ORDERED: Sodium Biphos-Phos 133 mL Enema RECTAL PRN (16:30)
[2017-06-07] MEDS ORDERED: Ketorolac 15 mg/mL Inj IVPUSH PRN (16:30)
[2017-06-07] MEDS ORDERED: HYDROcodone-APAP 5-325 mg Tablet PO PRN (16:30)
--- NOTE | 2017-06-07 16:47 | PCM.ANEP1 ---
Post Anesthesia PACU Phase 1 Assessment Date of Service: Jun 07, 2017 Vital Signs Vital Signs Date Time Temp Pulse Resp B/P Pulse Ox O2 Delivery O2 Flow Rate FiO2 06/07/17 14:33 36.8 66 16 199/86 96 Room Air Anesthetic Administered: GA Level of Alertness: Sleeping, hard to arouse Pain: No Pain Scale Score: 0 Nausea or Vomiting: No CV Function & Hydration Stable: Yes Airway Device: Oxygen Delivery: Nasal Cannula Lungs: Normal Air Movement PACU Phase 2 Assessment Complications: No Follow up Care: N/A Patient Instructions Provided: N/A Richard Wang MD Jun 07, 2017 16:47
[2017-06-07] MEDS ORDERED: HYDROmorphone 0.5 mg/0.5 mL iSecure Syringe IVPUSH PRN (17:05)
[2017-06-07] MEDS ORDERED: Vancomycin Inj 750 MG in 0.9% Sodium Chloride 250 ML IV ONE (17:10)
--- NOTE | 2017-06-07 17:42 | DRSVH ---
PROCEDURE: X-RAY PELVIS ONE OR TWO VIEWS ([id number]) INDICATIONS: 81 year-old female status post right hip hemiarthroplasty. TECHNIQUE: 1 view of the lower pelvis acquired. COMPARISON: [facility], CR, XR HIP 2VW RT, 06/06/2017, 12:20. FINDINGS: Bones: Patient is status post noncemented right hip jed-arthroplasty, with hardware components in e xpected positions. The hip joint appears congruent. The visualized bony structures appear intact. Soft tissues: Overlying postoperative changes are noted. No suspicious soft tissue densities. IMPRESSION: Status post right hip hemiarthroplasty for femoral neck fracture, with hardware component s in expected positions. Dictated by: Juancarlos Ruvalcaba M.D. on 06/07/2017 at 17:40 Approved by: Juancarlos Ruvalcaba M.D. on 06/07/2017 at 17:41
[2017-06-07] MEDS: Sodium Chloride LOK Flush 10 mL Syringe IV SCH (18:15)
--- NOTE | 2017-06-07 19:37 | NUR ---
Post op Pt arrived on bed at 1807 from PACU. 2L NC, IV with LR infusing, KHALIL, dressing on right hip in CDI. Pt has strong pedal pulse, good cap refill and full sensation in leg with mild tingling. Ice pack in place. Pt A&O x 3, eager to drink fluids. Blood sugar was 145 and called pharmacy for insulin. Pt having pain 05/24, very stoic and worried about getting addicted to medication, so she will decline pain medications. Did pt teaching and she accepted medication. Bed in low, call light in reach, care continues. Addendum: 06/07/17 at 1940 by IRIS ALICEA RN Pt's UA came back positive. notified at AM meeting.
[2017-06-07] MEDS: Acetaminophen IV 1,000 MG in IV Premix 1 EACH IV SCH (20:13)
[2017-06-07] MEDS: cloNIDine 0.1 mg Tablet PO SCH (20:14)
[2017-06-07] MEDS: Senna-Docusate 8.6-50 mg Tablet PO SCH (20:15)
[2017-06-07] MEDS: 0.9% Sodium Chloride 1,000 ML IV SCH (20:22)
--- NOTE | 2017-06-07 21:29 | OP ---
[address] [address] OPERATIVE REPORT PATIENT: SIDDHARTHA CONTRERAS : 1935 MR#: [id number] ADMIT: 06/06/2017 JOB ID: [id number] DATE OF SURGERY: 06/07/2017 PREOPERATIVE DIAGNOSIS(ES): Right femoral neck fracture. POSTOPERATIVE DIAGNOSIS(ES): Right femoral neck fracture. PROCEDURE: Right bipolar hip arthroplasty. SURGEON: Srikanth Reyna MD. EXPERIENCE DESIGNER: Meri Patton PA-C. Research Scientist required due to the complexity of the operation. INDICATIONS: This woman slipped and fell in her garage, suffered a vertically oriented femoral neck fracture. Treatment options discussed. She and the family have elected for a bipolar hip arthroplasty. They understand the potential for risks and complications, which include but is not limited to, infection, thromboembolic, neurovascular events, as well as a potential for leg length inequality, dislocation and implant failure. PROCEDURE IN DETAIL: The patient was placed in a lateral decubitus position on the operative room table. A posterolateral approach was made and dissection was carried down. External rotators were released. Capsule was T'd, tagged, and released. The femoral neck fragment was subsequently dislocated and the intercalated segment was cut. The head was removed from the acetabulum and sized to a 43 outer bearing. Box osteotome and straight reamer utilized on the femoral side. A 4 broach was placed which provided excellent canal filling. Following this, the trial reduction was performed. A -3.5 neck length was chosen which provided excellent soft tissue tension, alignment and length. Wounds were irrigated with sterile irrigant. The final construct was assembled. The stem was seated securely using an taper on cemented stem. Excellent stability was obtained. Construct was assembled. The hip was dislocated and was noted to be very stable. Wounds were irrigated with sterile irrigant. The capsule was closed to the trochanter as well as the external rotators. Deep fascia was closed with #2 Quill followed by a 2-0 Vicryl, 3-0, and a 4-0 intracuticular stitch. Steri-Strips were applied. The patient was returned to the recovery room in stable condition. She tolerated the procedure well. There were no complications. Standard postoperative course recommended.
[2017-06-08 00:08] LABS: Hemoglobin A1C 5.6 % (4.8-5.6)
[2017-06-08] MEDS: Acetaminophen IV 1,000 MG in IV Premix 1 EACH IV SCH ×4 (00:19→17:21)
[2017-06-08] MEDS: CeFAZolin Inj 2 GM in IV Premix 1 EACH IV SCH ×2 (00:20→09:04)
[2017-06-08] MEDS: Sodium Chloride LOK Flush 10 mL Syringe IV SCH ×4 (00:22→23:44)
[2017-06-08 05:14] VITALS: BP 152/74; PULSE 60; RESP 16; O2SAT 95
--- NOTE | 2017-06-08 05:34 | NUR ---
Pain Pt educated on pain medications and effects, as well as importance of keeping pain under control so she can participate in PT and healing. Pt reporting pain 8/10, agreed to try oxycodone 5mg in addition to the scheduled tylenol. Pt reports pain 4/10 after. Ice applied to right hip. Pt shifting weight in bed, but remained bedrest all shift. Rodriguez cath patent to gravity. IV fluids changed to NS per MD, infusing. Care continues.
[2017-06-08 05:38] LABS: BASOPHILS % (AUTO) 0.1 % (0-3); EOSINOPHILS % (AUTO) 0 % (0-5); MONOCYTES % (AUTO) 7.4 % (4-12); Mean Corpuscular Hemoglobin 30.8 pg (27.0-35.0); Mean Corpuscular Volume 92.9 fL (81-100); NEUTROPHILS % (AUTO) 84.4 % (40-74); Platelet Count 241 bil/L (150-400)
[2017-06-08] MEDS: 0.9% Sodium Chloride 1,000 ML IV SCH ×2 (06:15→12:34)
[2017-06-08] MEDS: Insulin LISPRO 300 Unit/3 mL Inj SUBQ SCH ×4 (08:00→22:00)
[2017-06-08 08:09] VITALS: BP 154/77; PULSE 51; RESP 17; O2SAT 98
[2017-06-08] MEDS: Senna-Docusate 8.6-50 mg Tablet PO SCH ×2 (09:01→21:02)
--- NOTE | 2017-06-08 09:52 | PCM.PNORTH ---
Subjective Date of Service: Jun 08, 2017 Visit Information: Reason for Visit Left Hip Fx Surgery/Surgery Date Post-Op Day # 1 Date of Admission: Jun 06, 2017 at 15:41 Hospital Day # Subjective Patient states she is not having any pain at this time. She has not worked with physical therapy. is at bedside. Postop General: No Complaints, No Shortness of Breath, No Chest Pain, Good Appetite Pain Management: PO Objective Exam Objective Patient is sitting up in bed eating breakfast. Vital Signs and I/O Vital Sign - Last Date Time Temp Pulse Resp B/P Pulse Ox O2 Delivery O2 Flow Rate FiO2 06/08/17 08:09 36.7 51 17 154/77 98 Room Air 06/08/17 05:14 1.00 Intake and Output 06/07/17 06/07/17 06/08/17 Cumulative From/Thru 15:00 23:00 07:00 06/06/17 11:59 - 06/08/17 05:14 Intake Total 977 ml 875 ml 800 ml 4240 ml Output Total 2550 ml 850 ml 7000 ml Balance 977 ml -1675 ml -50 ml -2760 ml Intake Oral 800 ml 1000 ml IV Total 977 ml 875 ml 3240 ml Output Urine Total 2550 ml 850 ml 7000 ml # Bowel Movements 0 0 Lab & Micro Results Laboratory Tests Test 06/08/17 04:45 White Blood Count 14.2th/mm3 (3.8-10.1) Red Blood Count 3.96mil/mm3 (3.90-5.20) Hemoglobin 12.2g/dL (12.0-15.6) Hematocrit 36.8% (35.0-46.0) Mean Corpuscular Volume 92.9fL (81-100) Mean Corpuscular Hemoglobin 30.8pg (27.0-35.0) Mean Corpuscular Hemoglobin Concent 33.2% (32.0-37.0) Red Cell Distribution Width 11.8% (12.3-15.4) Platelet Count 241bil/L (150-400) Neutrophils (%) (Auto) 84.4% (40-74) Lymphocytes (%) (Auto) 7.9% (14-46) Monocytes (%) (Auto) 7.4% (4-12) Eosinophils (%) (Auto) 0% (0-5) Basophils (%) (Auto) 0.1% (0-3) Sodium Level 140mEq/L (134-144) Potassium Level 3.9mEq/L (3.5-5.2) Chloride Level 103mEq/L (97-108) Carbon Dioxide Level 23mmol/L (18-29) Blood Urea Nitrogen 10mg/dL (8-27) Creatinine 0.57mg/dL (0.57-1.00) Estimat Glomerular Filtration Rate 146mL/min (>59) Glucose Level 127mg/dL (60-99) Calcium Level 9.1mg/dL (8.5-10.1) Microbiology 06/06/17 Urine Culture - Final, Complete Escherichia Coli Result Diagram: 06/08/1744406/08/17444 General Appearance: Alert, Oriented X3, Cooperative, No Acute Distress Extremities: Distal Pulses Palpable, No Compartment Syndrom Noted, Thigh & Calf Soft/Nontender Postop Sensory Motor: Distal Motor Intact, Movement in Toes, Distal Sensation Intact, NVI Distally Activity: Ambulate with PT (WBAT c FWW) Assessment & Plan Impression Stopped a #1 right hip bipolar hemiarthroplasty Problems: Plan Weightbearing: Weightbearing as tolerated with a front wheeled walker DVT prophylaxis: Aspirin 81 mg BID x 6weeks vs Lovenox 40mg SQ. Physical therapy for transfers, progressive ambulation, strengthening Wound care: Perioperative dressings will be changed to an island dressing tomorrow Analgesia: Continue oral pain medications Discharge plan: Discharge home vs SNF in 1-2 days. Posterior hip precautions Follow-up plan: In 2 weeks at [facility] with HORACIO for wound check and at [address] Reyna with x-rays Resuscitation Status: CPR: Attempt Resuscitation Meri Patton PA-C Jun 08, 2017 09:52
--- NOTE | 2017-06-08 11:08 | NUR ---
Social Work- Initial Assessment/ Multidisciplinary Rounds Data: See Initial Assessment and Advance Directive Intervention for additional information. Pt discussed in rounds. Pt is POD 1. Pt is not ready for discharge at this time. Pt will need SNF at discharge, SW order received. "Darshan" is a 81 year old admitted 06/06/17 for left hip fracture per H&P. Pt's insurance is [employer] and [employer]. Pt's PCP is Tamra Campbell MD. Pt's readmit risk score is 1. SW met with pt at bedside regarding discharge plan, SW role explained. Pt alert and oriented x3. Pt's capacity for self-care assessed. Pt resides at [facility] in a home with her . Pt is independent with ADLs and self-care. Pt uses no DME at baseline but has a walker available for use. Pt drives. Pt has no history with HH services. Pt has no history with SNF services. Pt has no DPOA on file and SW requested that pt bring in copy of DPOA. Pt reports that her and daughter Tawanna are DPOA. SW discussed SNF recommendation with pt and and pt is agreeable. SNF CHOICE LIST PROVIDED. Pt and agreeable to look over choice list and SW will follow up or pt can call ACCOUNTS SUPERVISOR. Paperwork and PASRR in folder. SW provided Discharge planning Checklist and requested that pt contact ACCOUNTS SUPERVISOR if needs identified. SW provided phone number and plan on whiteboard. Pt agreeable. SW will continue to follow. Assessment: Pt for whom SNF is medically indicated. Plan: SW to follow up with pt regarding SNF choice. Pt to discharge to SNF. Paperwork and PASRR in folder. SW will continue to follow. HILDA Sánchez Addendum: 06/08/17 at 1119 by TRINA QUARLES Amended: Links added.
--- NOTE | 2017-06-08 11:19 | NUR ---
SNF CHOICE LIST PROVIDED. Nelli Rock MSW
[2017-06-08 12:37] VITALS: BP 165/84; PULSE 68; RESP 16; O2SAT 93
[2017-06-08 17:17] VITALS: BP 152/76; PULSE 74; RESP 18; O2SAT 94
--- NOTE | 2017-06-08 17:24 | NUR ---
spiritual care: pt request brief visit. pt agreeable for eucharistic visitor, other family visitng. pt reported on procedure with energy and positivity.
--- NOTE | 2017-06-08 18:04 | NUR ---
Ambulation / Rodriguez DC / pain Pt worked with PT well today. Pt ambulated slowly with shuffle gait FWW SBA-1 assist. Rodriguez removed later morning. Pt has voided spontaneously X 2. Pain controlled with PO APAP and Oxycodone 5mg. Care continues
[2017-06-08 20:26] VITALS: BP 133/74; PULSE 77; RESP 17; O2SAT 94
[2017-06-08] MEDS: cloNIDine 0.1 mg Tablet PO SCH (21:02)
[2017-06-08] MEDS ORDERED: HYDROmorphone 0.5 mg/0.5 mL iSecure Syringe IVPUSH PRN (21:05)
--- NOTE | 2017-06-08 21:41 | PCM.PNMED ---
Subjective Date of Service Jun 08, 2017 Subjective Patient states that she is eating fine, no problems working with PT. She has had no bowel movement so for. Made her aware of herbal regimen that available to her Exam Vital Signs Vital Sign - Last Date Time Temp Pulse Resp B/P Pulse Ox O2 Delivery O2 Flow Rate FiO2 06/08/17 05:14 36.7 60 16 152/74 95 Nasal Cannula 1.00 Intake and Output 06/07/17 06/07/17 06/08/17 Cumulative From/Thru 15:00 23:00 07:00 06/06/17 11:59 - 06/08/17 05:14 Intake Total 977 ml 875 ml 800 ml 4240 ml Output Total 2550 ml 850 ml 7000 ml Balance 977 ml -1675 ml -50 ml -2760 ml Intake Oral 800 ml 1000 ml IV Total 977 ml 875 ml 3240 ml Output Urine Total 2550 ml 850 ml 7000 ml # Bowel Movements 0 0 Exam Gen.: No acute distress laying in bed talking on phone Heart: Grade 2+ systolic murmur, regular rate and rhythm Extremities warm. No edema moving legs Vascular: , pedal pulses are present, abd non distended and nontender Neuro: No focal deficits Psych: Negative for any anxiety or agitation IVs and Medications IV Fluids None Medications Reviewed: Medications were reviewed in detail Lab and Diagnostics Laboratory Tests Test 06/08/17 04:45 White Blood Count 14.2th/mm3 (3.8-10.1) Red Blood Count 3.96mil/mm3 (3.90-5.20) Hemoglobin 12.2g/dL (12.0-15.6) Hematocrit 36.8% (35.0-46.0) Mean Corpuscular Volume 92.9fL (81-100) Mean Corpuscular Hemoglobin 30.8pg (27.0-35.0) Mean Corpuscular Hemoglobin Concent 33.2% (32.0-37.0) Red Cell Distribution Width 11.8% (12.3-15.4) Platelet Count 241bil/L (150-400) Neutrophils (%) (Auto) 84.4% (40-74) Lymphocytes (%) (Auto) 7.9% (14-46) Monocytes (%) (Auto) 7.4% (4-12) Eosinophils (%) (Auto) 0% (0-5) Basophils (%) (Auto) 0.1% (0-3) Sodium Level 140mEq/L (134-144) Potassium Level 3.9mEq/L (3.5-5.2) Chloride Level 103mEq/L (97-108) Carbon Dioxide Level 23mmol/L (18-29) Blood Urea Nitrogen 10mg/dL (8-27) Creatinine 0.57mg/dL (0.57-1.00) Estimat Glomerular Filtration Rate 146mL/min (>59) Glucose Level 127mg/dL (60-99) Calcium Level 9.1mg/dL (8.5-10.1) Microbiology 06/06/17 Urine Culture - Final, Complete Escherichia Coli Result Diagram: 06/07/1744106/07/17441 X-Rays, CTs and MRIs X-ray right hip 2 view IMPRESSION: Right femoral neck fracture. Dictated by: Jere Weaver M.D. on 06/06/2017 at 12:42 chest x-ray Chest x-ray IMPRESSION: No acute process. Dictated by: Jere Weaver M.D. on 06/06/2017 at 12:43 12-lead ECG Sinus rhythm without concerning ST waves Assessment & Plan 81-year-old female who presented to the hospital after a ground-level fall onto concrete with confirmed right hip fracture Acute Right hip fracture status post right hip arthroplasty on 06/07 stable -Confirmed ground-level fall without reported syncope or loss of consciousness -Confirmed by two-view right hip x-ray -Dr. Reyna has performed right hip total arthroplasty on 06/07, she is postop day #1 -Acetaminophen for mild pain, morphine for moderate, reduced Dilaudid and oxycodone dosing -Vit D levels ordered, still pending -- We will discontinue IV fluids -- She is agreeable to rehabilitation at [facility] Hypertension, chronic; stable chronic -Patient takes clonidine, amlodipine, hydrochlorothiazide, and lisinopril at home -Continue home medications as confirmed Diabetes mellitus2; present on admission; stable -Patient takes metformin only as outpatient -A1c is 5.6 -Stop metformin -Continue the sliding scale Reported episodes of tachycardia; chronic stable -Patient is on metoprolol -EKG revealed sinus rhythm with heart rate 62 -Continue metoprolol, continue to monitor UTI, acute -- We will start patient on Keflex. It is in the setting of her surgery and recent Rodriguez catheterization she is at an increased risk for complications Disposition: Patient is being admitted to inpatient status with expected length of stay greater than two midnights due to to severity of presentation, duration of treatment, and risks of adverse events Patient is full code until brings in her advanced directives GI Prophylaxis: Not indicated VTE Mechanical Devices: Intermittant Pneumatic CD Resuscitation Status: CPR: Attempt Resuscitation Time spent 25 minutes Marie Noriega DO Jun 08, 2017 05:17
--- NOTE | 2017-06-09 02:18 | NUR ---
Activity/pain Pt up to BSC x3 this shift and is voiding well. Requires 1assist and uses FWW. Pt reports pain 8/10 and is receiving PRN tylenol and oxycodone with + effects. Dressing is CDI to hip. Encouraging PO fluids. Care continues.
[2017-06-09 05:20] VITALS: BP 129/74; PULSE 78; RESP 17; O2SAT 98
[2017-06-09 05:54] LABS: Mean Corpuscular Hemoglobin 30.4 pg (27.0-35.0); Mean Corpuscular Volume 93.7 fL (81-100)
[2017-06-09] MEDS: Insulin LISPRO 300 Unit/3 mL Inj SUBQ SCH ×4 (08:00→21:26)
--- NOTE | 2017-06-09 08:25 | PCM.PNORTH ---
Subjective Date of Service: Jun 09, 2017 Visit Information: Reason for Visit Left Hip Fx Surgery/Surgery Date left hip bipolar hemiarthroplasty 06/07/2017 Post-Op Day # 2 Date of Admission: Jun 06, 2017 at 15:41 Hospital Day # Subjective Patient plantar incisional pain. She ambulated in her room yesterday. At home the patient has a hospital bed and a ramp leading up into the house. Postop General: No Complaints, No Shortness of Breath, No Chest Pain, Good Appetite Pain Management: PO Objective Exam Objective Patient is seen in bed, and then she stood up and the walker for dressing change Vital Signs and I/O Vital Sign - Last Date Time Temp Pulse Resp B/P Pulse Ox O2 Delivery O2 Flow Rate FiO2 06/09/17 05:20 36.5 78 17 129/74 98 Room Air 06/08/17 05:14 1.00 Intake and Output 06/08/17 06/08/17 06/09/17 Cumulative From/Thru 15:00 23:00 07:00 06/06/17 11:59 - 06/09/17 05:20 Intake Total 1526 ml 1036 ml 1200 ml 8002 ml Output Total 650 ml 950 ml 8600 ml Balance 1526 ml 386 ml 250 ml -598 ml Intake Oral 1036 ml 1200 ml 3236 ml IV Total 1526 ml 4766 ml Output Urine Total 650 ml 950 ml 8600 ml # Bowel Movements 0 0 Lab & Micro Results Laboratory Tests Test 06/09/17 05:00 White Blood Count 10.9th/mm3 (3.8-10.1) Red Blood Count 3.82mil/mm3 (3.90-5.20) Hemoglobin 11.6g/dL (12.0-15.6) Hematocrit 35.8% (35.0-46.0) Mean Corpuscular Volume 93.7fL (81-100) Mean Corpuscular Hemoglobin 30.4pg (27.0-35.0) Mean Corpuscular Hemoglobin Concent 32.4% (32.0-37.0) Red Cell Distribution Width 12.2% (12.3-15.4) Platelet Count 226bil/L (150-400) Sodium Level 140mEq/L (134-144) Potassium Level 3.8mEq/L (3.5-5.2) Chloride Level 102mEq/L (97-108) Carbon Dioxide Level 24mmol/L (18-29) Blood Urea Nitrogen 16mg/dL (8-27) Creatinine 0.43mg/dL (0.57-1.00) Estimat Glomerular Filtration Rate 202mL/min (>59) Glucose Level 104mg/dL (60-99) Calcium Level 8.6mg/dL (8.5-10.1) Microbiology 06/06/17 Urine Culture - Final, Complete Escherichia Coli Result Diagram: 06/09/17 0500 06/09/17 0500 General Appearance: Alert, Oriented X3, Cooperative, No Acute Distress Extremities: Distal Pulses Palpable, No Compartment Syndrom Noted, Thigh & Calf Soft/Nontender Postop Sensory Motor: Distal Motor Intact, Distal Sensation Intact, NVI Distally SURGICAL WOUND : Wound Location/Description Right hip: Surgical dressing is removed. The wound is well approximated and Steri-Strips are in place. There is no erythema or drainage present. The surgical wound is cleansed with hydrogen peroxide and a new Island dressing is applied. Dressing & Drainage Status: Changed Activity: Ambulate with PT (WBAT c FWW) Catheters: None Assessment & Plan Impression POD #2 status post left hip bipolar hemiarthroplasty Problems: Plan Weightbearing: Weightbearing as tolerated with walker DVT prophylaxis: Lovenox 30 mg subcutaneous 10 days following discharge [stop date 06/22/2017] followed by aspirin 81 mg twice a day 4 weeks Physical therapy for transfers, progressive ambulation, therapeutic exercise Wound care: Dressing change today by PA to an island dressing Apply thigh-high NEEL hose stockings B LE today Discharge plan: [facility]charge to [facility] facility vs home with Home Health today or tomorrow when medically stable. Discharge instructions: change dressing every 2-3 days. Do not remove steri strips. May shower with wound covered starting 06/11/2017. Keep wound covered for 2 weeks. Do not soak or submerge wound for 2 weeks PT/OT at SNF Follow-up plan: In 2 weeks at [facility] with PA for wound check and at [address] Reyna with x-rays Pain Management: Oxycodone, Tylenol VTE Prophylaxis: Sub-Q Enoxaparin, SCDs Resuscitation Status: CPR: Attempt Resuscitation BenavidesLa Art PA-C Jun 09, 2017 08:25
[2017-06-09] MEDS: Sodium Chloride LOK Flush 10 mL Syringe IV SCH ×2 (10:07→17:19)
[2017-06-09] MEDS: Senna-Docusate 8.6-50 mg Tablet PO SCH ×2 (10:09→21:36)
[2017-06-09 12:48] VITALS: BP 111/66; PULSE 67; RESP 18; O2SAT 100
--- NOTE | 2017-06-09 13:46 | NUR ---
Social Work- Readiness for Discharge/ Multidisciplinary Rounds Data: EMR reviewed. Pt is on day 3 of hospitalization. Pt discussed in rounds. Pt is POD 2. Pt will discharge to SNF tomorrow. DONAVAN met with pt and at bedside regarding SNF choice. Pt chose [facility] has her only choice. [employer] contacted to make referral. Pt and informed of private pay transportation cost to SNF and they are agreeable. Pt's is the counter person for payment-- [phone], , or pt's room phone because he is often at the hospital. Paperwork in hard chart and PASRR in folder. Plan updated on whiteboard. All updated and agreeable to plan. SW will continue to follow. Assessment: Pt for whom SNF is medically necessary Plan: Referral to [facility]. Paperwork in hard chart and PASRR in folder. Plan updated on whiteboard. All updated and agreeable to plan. SW will continue to follow. HILDA Sánchez
--- NOTE | 2017-06-09 14:47 | NUR ---
Faxed referral to [facility] per HILDA and order. Addendum: 06/09/17 at 1618 by RUTHY LOCO CM [facility] has accepted patient for transfer when ready with [facility] to follow
--- NOTE | 2017-06-09 18:03 | NUR ---
Activity/pain patient up to bathroom 3 times during shift, voiding well. patient rating hip pain 3-6/10 throughout day. PO pain medication has been effective. patient has been using FWW and has been getting around well in the room with SBA. continue with plan of care.
[2017-06-09 20:14] VITALS: BP 154/80; PULSE 82; RESP 18; O2SAT 94
--- NOTE | 2017-06-09 21:27 | PCM.PNMED ---
Subjective Date of Service Jun 09, 2017 Subjective Patient is seen and examined. She is complaining of some pain with especially with movement in her lateral upper thoracic spine on the left side. She states that it has been present all day. No other complaints Exam Vital Signs Vital Sign - Last Date Time Temp Pulse Resp B/P Pulse Ox O2 Delivery O2 Flow Rate FiO2 06/09/17 20:14 37.6 82 18 154/80 94 Room Air 06/08/17 05:14 1.00 Intake and Output 06/08/17 06/08/17 06/09/17 Cumulative From/Thru 15:00 23:00 07:00 06/06/17 11:59 - 06/09/17 05:20 Intake Total 1526 ml 1036 ml 1200 ml 8002 ml Output Total 650 ml 950 ml 8600 ml Balance 1526 ml 386 ml 250 ml -598 ml Intake Oral 1036 ml 1200 ml 3236 ml IV Total 1526 ml 4766 ml Output Urine Total 650 ml 950 ml 8600 ml # Bowel Movements 0 0 Exam Gen.: No acute distress Heart: 2+ systolic murmur, regular rate and rhythm Lungs: Clear to auscultation no crackles or wheezes Abdomen: Not nontender nondistended, soft normal bowel sounds present Extremities she is able to move her extremities negative for swelling HEENT: Normocephalic, atraumatic Musculoskeletal: She has pain with thoracic spine movement/range of motion, palpable tenderness Neurological: No focal deficits Psych: Negative for agitation and anxiety IVs and Medications IV Fluids None Medications Reviewed: Medications were reviewed in detail Lab and Diagnostics Result Diagram: 06/09/17 0500 06/09/17 0500 X-Rays, CTs and MRIs X-ray right hip 2 view IMPRESSION: Right femoral neck fracture. Dictated by: Jere Weaver M.D. on 06/06/2017 at 12:42 chest x-ray Chest x-ray IMPRESSION: No acute process. Dictated by: Jere Weaver M.D. on 06/06/2017 at 12:43 12-lead ECG Sinus rhythm without concerning ST waves Assessment & Plan 81-year-old female who presented to the hospital after a ground-level fall onto concrete with confirmed right hip fracture Acute Right hip fracture status post right hip arthroplasty on 06/07 stable -Confirmed ground-level fall without reported syncope or loss of consciousness -Confirmed by two-view right hip x-ray -Dr. Reyna has performed right hip total arthroplasty on 06/07, she is postop day #1 -Acetaminophen for mild pain, morphine for moderate, reduced Dilaudid and oxycodone dosing -Vit D levels ordered, still pending -- She is agreeable to [facility] -- PT recommendation: "Current Discharge Recommendations * Group Home Facility" Musculoskeletal back pain, acute -- Flexeril 10 mg twice a day when necessary, ibuprofen 200 mg every 6 when necessary -- She is to estimate the nursing now she feels any short of breath with persistent chest pain or pressure sensation Hypertension, chronic; stable chronic -Patient takes clonidine, amlodipine, hydrochlorothiazide, and lisinopril at home -Continue home medications as confirmed Diabetes mellitus2; present on admission; stable -Patient takes metformin only as outpatient -A1c is 5.6 -Stop metformin -Continue the sliding scale Reported episodes of tachycardia; chronic stable -Patient is on metoprolol -EKG revealed sinus rhythm with heart rate 62 -Continue metoprolol, continue to monitor UTI, acute -- We will start patient on Keflex. It is in the setting of her surgery and recent Rodriguez catheterization she is at an increased risk for complications Disposition: Patient is being admitted to inpatient status with expected length of stay greater than two midnights due to to severity of presentation, duration of treatment, and risks of adverse events Patient is full code until brings in her advanced directives Pain Evaluation: Adequate Pain Control GI Prophylaxis: Not indicated VTE Prophylaxis: Sub-Q Enoxaparin, SCDs VTE Mechanical Devices: Intermittant Pneumatic CD Resuscitation Status: CPR: Attempt Resuscitation Time spent 25 minutes Marie Noriega DO Jun 09, 2017 21:27
[2017-06-09 21:34] VITALS: BP 152/81; PULSE 75; RESP 16; O2SAT 94
[2017-06-09] MEDS: cloNIDine 0.1 mg Tablet PO SCH (21:37)
[2017-06-09 23:42] VITALS: BP 99/100; PULSE 62; RESP 17; O2SAT 94
[2017-06-09 23:43] VITALS: BP 101/61
[2017-06-10] VITALS (9 sets, daily range): BP systolic 54–148; BP diastolic 34–82; PULSE 65–83; RESP 16–18; O2SAT 94–97
--- NOTE | 2017-06-10 00:06 | NUR ---
Temp/ BP The evening approx 2014 patient presented with a mild temp; 37.6. 2 tabs of tylenol PO was given and upon reassessment patients temp improved to 36.7. BP at 2130 was 152/81 and HR 75, evening medications given as scheduled. BP reassessed at 2340 and was 99/60. Patient denies light headedness, or dizziness but states that she feels hot. Temp reassessed and is WNL. Patient is currently SL. Night hospitalist notified. No new orders at this time. Will continue to monitor and continue Q1 hour checks.
[2017-06-10] MEDS: Sodium Chloride LOK Flush 10 mL Syringe IV SCH ×3 (00:30→17:38)
[2017-06-10] MEDS: HYDROcodone-APAP 5-325 mg Tablet PO PRN ×2 (03:37→19:25)
--- NOTE | 2017-06-10 05:03 | NUR ---
Left side thoracic pain Patient complains of sharp left sided upper thoracic pain this evening. MD came to assess patient at beginning of shift, and states that she believes this to be musculoskeletal pain. Flexeril PO was ordered, and first dose was given. Upon reassessment patient states some improvement in the pain. MD educated patient to alert nurse if pain manifests as pressure or chest heaviness. Patient has denied CP/SOB, or heaviness in chest. As the shift has progressed pain has started to come back in the left chest, but patient explains same sensation. Will continue to monitor and continue Q1 hour checks.
[2017-06-10] MEDS: Insulin LISPRO 300 Unit/3 mL Inj SUBQ SCH ×4 (08:00→22:00)
[2017-06-10] MEDS: Senna-Docusate 8.6-50 mg Tablet PO SCH ×2 (09:19→20:30)
--- NOTE | 2017-06-10 09:43 | PCM.PNORTH ---
Subjective Date of Service: Jun 10, 2017 Visit Information: Reason for Visit Left Hip Fx Surgery/Surgery Date Post-Op Day # 3 Date of Admission: Jun 06, 2017 at 15:41 Hospital Day # Postop General: No Complaints, No Shortness of Breath, No Chest Pain, Good Appetite Pain Management: PO Objective Exam Objective patient sitting up in bed after using the commode Vital Signs and I/O Vital Sign - Last Date Time Temp Pulse Resp B/P Pulse Ox O2 Delivery O2 Flow Rate FiO2 06/10/17 05:44 37.1 65 17 128/75 97 Room Air 06/08/17 05:14 1.00 Intake and Output 06/09/17 06/09/17 06/10/17 Cumulative From/Thru 15:00 23:00 07:00 06/06/17 11:59 - 06/10/17 05:44 Intake Total 437 ml 1030 ml 9469 ml Output Total 950 ml 9550 ml Balance 437 ml 80 ml -81 ml Intake Oral 437 ml 1030 ml 4703 ml IV Total 4766 ml Output Urine Total 950 ml 9550 ml # Voids 3 3 # Bowel Movements 0 0 0 Lab & Micro Results Microbiology 06/06/17 Urine Culture - Final, Complete Escherichia Coli Result Diagram: 06/09/17 0500 06/09/17 0500 General Appearance: Alert, Oriented X3, Cooperative, No Acute Distress Extremities: Distal Pulses Palpable, Warm, No Edema, No Compartment Syndrom Noted, Thigh & Calf Soft/Nontender, Cyanotic Postop Sensory Motor: Distal Motor Intact, Movement in Toes, Distal Sensation Intact, NVI Distally SURGICAL WOUND : Dressing & Drainage Status: Changed Activity: Ambulate with PT (WBAT c FWW) Catheters: None Assessment & Plan Impression POD #3 status post left hip bipolar hemiarthroplasty Problems: Plan Weightbearing: Weightbearing as tolerated with walker DVT prophylaxis: Lovenox 30 mg subcutaneous 10 days following discharge [stop date 06/22/2017] followed by aspirin 81 mg twice a day 4 weeks Physical therapy for transfers, progressive ambulation, therapeutic exercise Wound care: Dressing change today by PA to an island dressing Apply thigh-high NEEL hose stockings B LE today [facility] I [facility] to do a Doc to Doc. Discharge instructions: Change dressing every 2-3 days. Do not remove steri strips. May shower with wound covered starting 06/11/2017. Keep wound covered for 2 weeks. Do not soak or submerge wound for 2 weeks PT/OT at [facility] Follow-up plan: In 2 weeks at [facility] with PA for wound check and at [address] Reyna with x-rays VTE Prophylaxis: Sub-Q Enoxaparin, SCDs Resuscitation Status: CPR: Attempt Resuscitation Meri Patton PA-C Jun 10, 2017 09:43
--- NOTE | 2017-06-10 09:46 | PCM.DIORTH ---
Ortho Discharge Instruction Date of Service: Jun 10, 2017 Dates of Hospitalization Date of Hospital Admission Jun 06, 2017 at 15:41 Providers Admitting Physician: Reg Ramirez MD Primary Care Physician: Tamra Campbell MD Attending Physician: Marie Noriega DO Activity Discharge Activity-General: Be up and about, Ice incision 3-5 time/day for 20min Right Lower Extremity: Weight Bearing as tolerated Discharge Assist Device: Front Wheeled Walker Dressing and Incisional Care Discharge Dressing Care: Keep dressing clean, dry & intact Additional Instructions Discharge Instructions Weightbearing: Weightbearing as tolerated with walker DVT prophylaxis: Lovenox 30 mg subcutaneous 10 days following discharge [stop date 06/22/2017] followed by aspirin 81 mg twice a day 4 weeks Physical therapy for transfers, progressive ambulation, therapeutic exercise Wound care: Dressing change today by PA to an island dressing Apply thigh-high NEEL hose stockings B LE today. Patient should have compression stockings on at all times while ambulating. Discharge plan: Discharge to [facility] facility today. I have called [facility] to do a Doc to Doc. Discharge instructions: Change dressing every 2-3 days. Do not remove steri strips. May shower with wound covered starting 06/11/2017. Keep wound covered for 2 weeks. Do not soak or submerge wound for 2 weeks PT/OT at SNF Follow-up plan: In 2 weeks at [facility] with PA for wound check and at [address] Reyna with x-rays Meri Patton PA-C Jun 10, 2017 09:46
[2017-06-10] MEDS ORDERED: HYDR25CA PO (10:23)
[2017-06-10] MEDS ORDERED: LOV30 SUBQ (10:23)
[2017-06-10] MEDS ORDERED: HYDR-4003 PO (10:23)
--- NOTE | 2017-06-10 10:36 | PCM.DC.ORT ---
Discharge Summary Date of Service: Jun 10, 2017 Date of Hospital Admission: Jun 06, 2017 at 15:41 Date of Surgery: Jun 07, 2017 Date of Discharge: Jun 10, 2017 Reason for Hospitalization: Left hip fracture Procedures Performed: Left hip bipolar hemiarthroplasty Hospital Course: The patient was admitted to the hospital on 06/06/2017 and underwent the above procedure on 06/07/2017. Antibiotic prophylaxis consisting of Ancef and vancomycin. The surgeon was Dr. Reyna. A Rodriguez was placed perioperatively while on the [facility] floor. Patient tolerated the procedure well and was transferred to recovery room in stable condition. Rodriguez was discontinued on postop day 1. Patient had physical therapy to work on ambulation and transfers. Weightbearing as tolerated with walker. Pain was managed with Dilaudid, Percocet , Vistaril, Toradol. DVT prophylaxis: Lovenox 30mg SQ and SCDs. Hospital course was uncomplicated. Patient was able to perform adequately enough to be discharged to SNF on postop day 3. Follow-up: at [facility] 2 weeks postop for wound check and at [address] Reyna with x-ray. Diagnosis at Time of Discharge Status post left hip bipolar hemiarthroplasty Problems: Disposition: Stable, discharged to [facility] Discharge Instructions: Weightbearing: Weightbearing as tolerated with walker DVT prophylaxis: Lovenox 30 mg subcutaneous 10 days following discharge [stop date 06/22/2017] followed by aspirin 81 mg twice a day 4 weeks Physical therapy for transfers, progressive ambulation, therapeutic exercise Wound care: Dressing change today by PA to an island dressing Apply thigh-high NEEL hose stockings B LE today Discharge plan: Discharge to [facility] today. I have called [facility] to do a Doc to Doc. Discharge instructions: Change dressing every 2-3 days. Do not remove steri strips. May shower with wound covered starting 06/11/2017. Keep wound covered for 2 weeks. Do not soak or submerge wound for 2 weeks PT/OT at SNF Follow-up plan: In 2 weeks at [facility] with PA for wound check and at [address] Reyna with x-rays Amlodipine (Amlodipine) 5 Mg Tablet 5 MG PO HS PLEASE CRUSH AND GIVE W/ APPLESAUCE Clonidine (Clonidine) 0.1 Mg Tablet 0.1 MG PO HS PLEASE CRUSH AND GIVE W/ APPLESAUCE Cyanocobalamin (Vitamin B-12) (Vitamin B-12) 1,000 Mcg/1 Ml Drops 1,000 MCG PO QAM Enoxaparin (Lovenox) 30 Mg/0.3 Ml Syringe 30 MG SUBQ Q24 Fluticasone Propionate (Fluticasone Propionate) 50 Mcg/Actuation [place].susp 1 SPRAY NS DAILY PRN PRN RHIN[place]A Hydrochlorothiazide (Hydrochlorothiazide) 25 Mg Tablet 25 MG PO QAM PLEASE CRUSH AND GIVE W/ APPLESAUCE Hydrocodone-Acetaminophen 5-325 mg (Hydrocodone-Acetaminophen 5-325 mg) 1 Each Tablet 1 TABLET PO Q4H PRN PRN For Moderate Pain Hydroxyzine Pamoate (Vistaril) 25 Mg Capsule 25 MG PO Q6H PRN PRN For Itching Lisinopril (Lisinopril) 40 Mg Tablet 40 MG PO QAM PLEASE CRUSH AND GIVE W/ APPLESAUCE Metformin (Metformin) 500 Mg Tablet 500 MG PO BIDWM PLEASE CRUSH AND GIVE W/ APPLESAUCE Metoprolol Tartrate (Metoprolol Tartrate) 25 Mg Tablet 12.5 MG PO QAM PLEASE CRUSH AND GIVE W/ APPLESAUCE Pediatric Multivit Comb No.42 (Flintstones) 1 Each Tab.chew 1 EACH PO QAM PLEASE CRUSH AND GIVE W/ APPLESAUCE Potassium Chloride ER (Potassium Chloride ER) 10 Meq Tablet 10 MEQ PO BIDWM PLEASE CRUSH AND GIVE W/ APPLESAUCE Meri Patton PA-C Jun 10, 2017 10:36
--- NOTE | 2017-06-10 10:38 | NUR ---
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
--- NOTE | 2017-06-10 10:42 | NUR ---
Report to [facility]. report called to DEBORAH Merchant at [facility]. questions answered at this time.
--- NOTE | 2017-06-10 11:00 | NUR ---
episode of dizziness/hypotension at approx 1045hrs patient up to [facility] and had a sudden onset of dizziness/near syncope when bearing down for BM. patient was returned to bed. initial SBP was 87. after resting from 10-215 minutes patient reported feeling better and Bp improved slightly. orthostatic were done with a significant BP drop. (see vital flow sheet). Dr Noriega was notified. discharge was place on hold today. IV bolus of 500ml order along with labs, ECG and ECHO. after lunch and fluid bolus patient's BP returned to normal baseline. Patient was able to get up without ortho drop and able to work with PT this afternoon. encourage PO fluid intake and continue to monitor.
--- NOTE | 2017-06-10 11:10 | NUR ---
Social Work- Discharge/ Multidisciplinary Rounds Data: EMR reviewed. Pt is on day 4 of hospitalization for left hip fracture. Pt discussed in rounds. Pt will discharge today. T/C to Hannah at [facility] regarding discharge, [facility] is agreeable to plan. Hannah coordinated transportation at 11 am. DONAVAN informed Ortho PA of Doc to Doc requirement, Ortho PA called MD Peterson. Pt and updated at bedside of transportation at 11 am. RN updated of transport time. MATERNITY NURSE created packet and faxed clinicals. Paperwork in chart, PASRR faxed and in packet. Pt to discharge at 11 am via wheelchair van to [facility]. RN, UC, Pt/family, and [facility] all updated and agreeable to plan. Assessment: Pt for whom SNF is medically necessary Plan: Pt to discharge at 11 am via wheelchair van to [facility]. RN, UC, Pt/family, and [facility] all updated and agreeable to plan. HILDA Sánchez Addendum: 06/10/17 at 1121 by TRINA QUARLES SS Pt had a vasovagal episode immediately prior to transport. Hospitalist is keeping pt one more night. Lisa has signed off. [facility] updated and agreeable to plan. DONAVAN will continue to follow. HILDA Sánchez
[2017-06-10] MEDS ORDERED: 0.9% Sodium Chloride 500 ML IV ONE (11:15)
[2017-06-10 12:27] LABS: Creatine Kinase 120 U/L (21-215)
[2017-06-10 12:29] LABS: TROPONIN T < 0.010 ug/L (0.0-0.011)
--- NOTE | 2017-06-10 15:16 | DRSVH ---
[facility] [address] [place] [address] Echocardiogram Report Name: SIDDHARTHA CONTRERAS MStudy Date: 06/10/2017 Height: 62 in Hospital Exam Location: [facility] Weight: 102 lb Gender: Female BSA: 1.4 m2 : 1935 Age: 81 yrs BP: 101/62 mm Hg Reason For Study: Pre Syncope Ordering Physician: HOSPITALIST [facility] Performed By: Keyla Arana Referring Physician: [facility] Interpretation Summary The ejection fraction is estimated to be 65-70%. The mitral valve leaflets appear mildly thickened, but open well. The aortic valve is mildly calcified. Leaflet mobility is mild to moderately reduced. The right ventricular systolic pressure is estimated at 31 mmHg assuming a right atrial pressure of 3 mm Hg. Procedure: A two-dimensional transthoracic echocardiogram with color flow and Doppler was performed. The study quality was technically adequate. Comparison is made with the echocardiogram of 02/04/2016. The patient was in normal sinus rhythm during the exam. Left Ventricle: The left ventricle is normal in size. The LVOT velocity is 1.83 m/s. The left ventricular outflow velocity with valsalva is 3.43 m/s. The ejection fraction is estimated to be 65-70%. Right Ventricle: Borderline right ventricular enlargement. The right ventricular systolic function is normal. Atria: The left atrial size is normal. The right atrium is moderately dilated. The interatrial septum is intact with no evidence for an atrial septal defect. Mitral Valve: The mitral valve leaflets appear mildly thickened, but open well. There is trace mitral regurgitation. Aortic Valve: The aortic valve is trileaflet. The aortic valve is mildly calcified. Leaflet mobility is mild to moderately reduced. No aortic regurgitation is present. Tricuspid Valve: The tricuspid valve leaflets are thin and pliable. There is trace tricuspid regurgitation. The right ventricular systolic pressure is estimated at 31 mmHg assuming a right atrial pressure of 3 mm Hg. Pulmonic Valve: The pulmonic valve is not well seen, but is grossly normal. There is a trace or physiologic amount of pulmonic regurgitation. Great Vessels: The aortic root is normal size. The ascending aorta is mildly enlarged. Mildly dilated abdominal aorta. The IVC is of normal diameter and collapses greater than 50% with a sniff. This suggests a low right atrial pressure of 3 mm Hg. Pericardium/ Pleura There is no pericardial effusion. There is an anterior echo-free space consistent with a fat pad. There is no pleural effusion. MMode/2D Measurements & Calculations LVIDd: 4.0 cm RA long axis LVOT diam LVIDs: 2.9 cm LA A2 area: 14.5 cm FS: 28.7 % LA A4 area: 14.5 cm RA area Ao root diam IVSd: 1.0 cm LA length (vol): 4.0 cm LVPWd: 0.93 cm LA vol: 44.3 ml : 20.6 cm asc Aorta LA vol index RA vol: 78.1 mlDiam: 3.9 cm RA : 30.8 ml/m2 : 54.4 mm2 LV cain. diameter/BSA LV sys. diameter/BSA TAPSE: 2.0 cm (cm/m^2): 2.8 (cm/m^2): 2.0 Doppler Measurements & Calculations LVOT Max Daniel MV E max daniel MV E/A: 0.77 TR max daniel : 126.7 cm/sec : 73.9 cm/sec Med Peak E' Daniel : 266.8 cm/sec MV A max daniel TR max PG : 95.7 cm/sec E/E' med: 10.7 : 28.5 mmHg MVA(VTI): 3.1 cm2 Lat Peak E' Daniel PA V2 max : 95.2 cm/sec E/E' lat: 8.8 PA mean PG E/e' average: 9.7 : 1.8 mmHg MV V2 mean LV V1 max PG PA V2 mean : 75.7 cm/sec : 64.6 cm/sec MV mean PG LV V1 VTI: 25.0 cmPA pr(Accel) : 10.9 mmHg MV V2 VTI: 27.2 cm MV dec time : 0.26 sec Electronically signed by: Clifton Yo on Reading Physician:06/10/2017 03:16 PM
[2017-06-10] MEDS: cloNIDine 0.1 mg Tablet PO SCH (22:00)
[2017-06-11 00:07] VITALS: BP 104/67; PULSE 60; RESP 18; O2SAT 94
[2017-06-11] MEDS: Sodium Chloride LOK Flush 10 mL Syringe IV SCH ×2 (00:30→08:31)
--- NOTE | 2017-06-11 00:46 | PCM.PNMED ---
Subjective Date of Service Jun 10, 2017 Subjective The patient is seen and examined prior to her Discharge to [facility]. Apparently ortho wanted to take care of the discharge, even staffed the case with the fpc attending. I got called because patient has very dizzy and had a vasovagal response became presyncopal and she tried to use the toilet, and had a big bowel movement. Patient tells me that her musculoskeletal chest pain has improved with Flexeril and ibuprofen. She is currently feeling fine, no dyspnea. She states that her dizziness and presyncopal feeling came firs she has not experienced chest pain at that time t, Exam Vital Signs Vital Sign - Last Date Time Temp Pulse Resp B/P Pulse Ox O2 Delivery O2 Flow Rate FiO2 06/10/17 11:09 72 101/62 06/10/17 11:01 16 06/10/17 07:40 Supplement Oxygen 06/10/17 05:44 37.1 97 06/08/17 05:14 1.00 Intake and Output 06/09/17 06/09/17 06/10/17 Cumulative From/Thru 15:00 23:00 07:00 06/06/17 11:59 - 06/10/17 05:44 Intake Total 437 ml 1030 ml 9469 ml Output Total 950 ml 9550 ml Balance 437 ml 80 ml -81 ml Intake Oral 437 ml 1030 ml 4703 ml IV Total 4766 ml Output Urine Total 950 ml 9550 ml # Voids 3 3 # Bowel Movements 0 0 0 Exam Gen.: No acute distress Heart: 2+ systolic murmur, regular rate and rhythm Lungs: Clear to auscultation no crackles or wheezes Abdomen: Not nontender nondistended, soft normal bowel sounds present Extremities she is able to move her extremities negative for swelling HEENT: Normocephalic, atraumatic Musculoskeletal: She has pain with thoracic spine movement/range of motion, palpable tenderness Neurological: No focal deficits Psych: Negative for agitation and anxiety IVs and Medications IV Fluids 500 cc nss bolus Medications Reviewed: Medications were reviewed in detail Lab and Diagnostics Result Diagram: 06/09/17 0500 06/09/17 0500 X-Rays, CTs and MRIs X-ray right hip 2 view IMPRESSION: Right femoral neck fracture. Dictated by: Jere Weaver M.D. on 06/06/2017 at 12:42 chest x-ray Chest x-ray IMPRESSION: No acute process. Dictated by: Jere Weaver M.D. on 06/06/2017 at 12:43 12-lead ECG Sinus rhythm without concerning ST waves Assessment & Plan 81-year-old female who presented to the hospital after a ground-level fall onto concrete with confirmed right hip fracture Presyncopal symptoms, acute -- Vasovagal response versus dehydration. Cardiac etiology ruled out -- She was also hypotensive at 72/34, likely due to volume depletion, inadequate hydration -- Her troponin, negative. EKG is ordered. BMP is ordered B UN is 20, dehydration -- 500 mL fluid boluses ordered -- Discharge is held -- She was actually hypertensive for the most part of her admission -- She does have an impressive systolic murmur , thus Echocardiogram is ordered to eliminate the aortic stenosis as a reason for her presyncopal event. "Interpretation Summary The ejection fraction is estimated to be 65-70%. The mitral valve leaflets appear mildly thickened, but open well. The aortic valve is mildly calcified. Leaflet mobility is mild to moderately reduced. The right ventricular systolic pressure is estimated at 31 mmHg assuming a right atrial pressure of 3 mm Hg. does not indicate valvular issues. Acute Right hip fracture status post right hip arthroplasty on 06/07 stable -Confirmed ground-level fall without reported syncope or loss of consciousness -Confirmed by two-view right hip x-ray -Dr. Reyna has performed right hip total arthroplasty on 06/07, she is postop day #1 -Acetaminophen for mild pain, morphine for moderate, reduced Dilaudid and oxycodone dosing -Vit D levels ordered, still pending -- She is agreeable to rehabilitation at [facility] her [facility] -- PT recommendation: "Current Discharge Recommendations * Group Home Facility" Musculoskeletal back pain, acute improving -- Flexeril 10 mg twice a day when necessary, ibuprofen 200 mg every 6 when necessary Hypertension, chronic; stable chronic -Patient takes clonidine, amlodipine, hydrochlorothiazide, and lisinopril at home -Continue home medications as confirmed Diabetes mellitus2; present on admission; stable -Patient takes metformin only as outpatient -A1c is 5.6 -Stop metformin -Continue the sliding scale Reported episodes of tachycardia; chronic stable -Patient is on metoprolol -EKG revealed sinus rhythm with heart rate 62 -Continue metoprolol, continue to monitor UTI, acute -- We will start patient on Keflex. It is in the setting of her surgery and recent Rodriguez catheterization she is at an increased risk for complications Disposition: Patient is being admitted to inpatient status with expected length of stay greater than two midnights due to to severity of presentation, duration of treatment, and risks of adverse events Patient is full code until brings in her advanced directives, patient will be discharged to fpc in the a.m. if blood pressures remain stable Pain Evaluation: Adequate Pain Control GI Prophylaxis: Not indicated VTE Prophylaxis: Sub-Q Enoxaparin, SCDs VTE Mechanical Devices: Intermittant Pneumatic CD Resuscitation Status: CPR: Attempt Resuscitation Time spent 30 minutes Marie Noriega DO Jun 10, 2017 11:18
[2017-06-11] MEDS: HYDROcodone-APAP 5-325 mg Tablet PO PRN ×2 (02:36→08:45)
--- NOTE | 2017-06-11 02:52 | NUR ---
Pain Management At start of shift patient complains of 8/10 hip pain. 1 tab of [place] given. Upon further reassessment patient rates pain 0/10, and states that medication has completely alleviated hip pain. That single dose lasted the patient about 7 hours before she required another tablet at around 0240. Patient now rates hip pain 4/10, but also states that she is experiencing some pain in her right elbow. Elbow is bruised, swollen and tender to touch. Will continue to monitor and continue Q1 hour checks.
[2017-06-11 05:59] VITALS: BP 115/75; PULSE 69; RESP 17; O2SAT 96
[2017-06-11] MEDS: Insulin LISPRO 300 Unit/3 mL Inj SUBQ SCH ×2 (08:00→12:00)
[2017-06-11] MEDS ORDERED: CEPH500C PO (08:23)
[2017-06-11 08:30] VITALS: BP 121/76; PULSE 76
[2017-06-11] MEDS: Senna-Docusate 8.6-50 mg Tablet PO SCH (08:33)
--- NOTE | 2017-06-11 08:48 | NUR ---
Social Work: Readiness for Discharge D: EMR reviewed. Pt is on day 5 of hospitalization. Per Lead Ios Developer, pt to discharge today to [facility]. [facility] will provide transport between 1300 and 1330 today, if pt is ready for discharge. SW will update RN and MD in multidisciplinary rounds and update Lead Ios Developer if pt is not medically stable for discharge. Transfer packet completed. Pt will require a Doc to Doc with MD Peterson [phone]. Paperwork and PASRR in patient's chart, PASRR has been faxed to [facility]. SW will continue to follow. A: Pt for whom SNF is medically necessary P: Pt likely to discharge today (medically stablility for discharge TBD during multidisciplinary rounds) between 1300 and 1330 to [facility], MD [facility] to follow. SW to update MD and RN in rounds. Paperwork and PASRR in patient's chart, PASRR has been faxed. SW will continue to follow. HILDA Holman Addendum: 06/11/17 at 1008 by YUKI PATRICK Transfer packet complete. RN/MD updated on transport time in multidisciplinary rounds. All agreeable to plan. HILDA Holman
--- NOTE | 2017-06-11 10:18 | NUR ---
Assisted Transfer: Per MD in multidisciplinary rounds patient will be ok to discharge today. Spoke with Hannah from [employer] and she will also have [employer] tow motor driver pick this patient up between 1300&1330. Orders and MD to MD phone call was made on 06/10/17 and everything still stands for those orders. Updated METAL DRILL PRESS OPERATOR and RN
[2017-06-11] MEDS ORDERED: CYCL5TAB PO (12:20)
[2017-06-11] MEDS ORDERED: LISI40TA PO (12:24)
--- NOTE | 2017-06-11 12:36 | NUR ---
Social Work: Discharge D: EMR reviewed. Pt is on day 5 of hospitalization. Pt confirmed to transport to [facility] via [facility] transportation between 1300 and 1330. PASRR/discharge orders faxed to [facility]. Transfer packet completed. All updated and agreeable to plan. SW will continue to follow. A: Pt for whom SNF is medically necessary P: Pt to discharge today between 1300 and 1330 to [facility], MD [facility] to follow. SW to update MD and RN in rounds. Paperwork and PASRR in patient's chart, PASRR/discharge orders faxed by [employer]. Transfer packet complete. RN/MD updated on transport time in multidisciplinary rounds. All updated and agreeable to plan. SW will continue to follow. HILDA Holman
--- NOTE | 2017-06-11 14:03 | NUR ---
Discharge Patient discharged via transport from [facility]. IV DC'd intact. Assisted to get dressed. Family aware of transfer. Personal belongings went with patient.
--- NOTE | 2017-06-12 01:12 | PCM.DC.MED ---
Discharge Summary Date of Service Jun 12, 2017 Dates of Hospitalization Date of Hospital Admission Jun 06, 2017 at 15:41 Date of Discharge: Jun 11, 2017 Providers: Admitting Physician: Reg Ramirez MD Primary Care Physician: Tamra Campbell MD Attending Physician: Marie Blackwell DO Diagnosis at Time of Discharge Diagnosis at Time of Discharge Right femoral neck fracture status post total arthroplasty, hypertension, diabetes mellitus 2, UTI, muscle spasm, low blood pressure Procedures XRay, CTs & MRIs X-ray right hip 2 view IMPRESSION: Right femoral neck fracture. Dictated by: Jere Weaver M.D. on 06/06/2017 at 12:42 chest x-ray Chest x-ray IMPRESSION: No acute process. Dictated by: Jere Weaver M.D. on 06/06/2017 at 12:43 ECG 12 Lead Sinus rhythm without concerning ST waves Brief History 81-year-old female with a history of gastric cancer post gastrectomy last October, hypertension, and diabetes presents to the emergency department after a ground-level fall onto concrete. Per the patient she was carrying a large bucket of water into her friend's house when she tripped on a concrete step and fell on her right hip. She denies any syncope, dizziness, lightheadedness, or hitting her head. She states is the first hip fracture she has suffered but in the past year she has fractured a bone in her lower right extremity, as well as reported fracture in T10. Patient is not on any calcium or vitamin D supplements except for [place] vitamin. She had a recent bone density scan which shows osteopenia and osteoporosis of spine, as well as a 13.9% of major osteoporotic fracture, and a 4.9% chance of hip fracture. Patient denies all other review of systems, including chest pain, racing heartbeat, numbness/ tingling, shortness of breath. In the ED the patient underwent 2 view of the right hip which showed right femoral neck fracture. Dr. Reyna from orthopedics was paged by the emergency department and we currently await a call back. Patient has not eaten since this morning. Hospital Course 81-year-old female who presented to the hospital after a ground-level fall onto concrete with confirmed right hip fracture Presyncopal symptoms, acute -- Vasovagal response versus dehydration. Cardiac etiology ruled out -- She was also hypotensive at 72/34, likely due to volume depletion, inadequate hydration -- Her troponin, negative. EKG is ordered. BMP is ordered B UN is 20, dehydration -- 500 mL fluid boluses ordered -- Discharge is held -- She was actually hypertensive for the most part of her admission -- She does have an impressive systolic murmur , thus Echocardiogram is ordered to eliminate the aortic stenosis as a reason for her presyncopal event. "Interpretation Summary "The ejection fraction is estimated to be 65-70%. The mitral valve leaflets appear mildly thickened, but open well. The aortic valve is mildly calcified. Leaflet mobility is mild to moderately reduced. The right ventricular systolic pressure is estimated at 31 mmHg assuming a right atrial pressure of 3 mm Hg. does not indicate valvular issues." -- We changed her home medications to reduce. Lisinopril was decreased, hydrochlorothiazide/amlodipine are discontinued to avoid risk of the blood pressure. Recommend that PCP monitors for any future changes. Acute Right hip fracture status post right hip arthroplasty on 06/07 stable -Confirmed ground-level fall without reported syncope or loss of consciousness -Confirmed by two-view right hip x-ray -Dr. Reyna has performed right hip total arthroplasty on 06/07, she is postop day #1 -Acetaminophen for mild pain, morphine for moderate, reduced Dilaudid and oxycodone dosing -Vit D levels ordered, still pending -- She is agreeable to rehabilitation at [facility] of her choice -- PT recommendation: "Current Discharge Recommendations * Group Home Facility" Musculoskeletal back pain, acute improving -- Flexeril 10 mg twice a day when necessary, ibuprofen 200 mg every 6 when necessary Hypertension, chronic; stable chronic -Patient takes clonidine, amlodipine, hydrochlorothiazide, and lisinopril at home -Continue home medications as confirmed Diabetes mellitus2; present on admission; stable -Patient takes metformin only as outpatient -A1c is 5.6 -Stop metformin -Continue the sliding scale Reported episodes of tachycardia; chronic stable -Patient is on metoprolol -EKG revealed sinus rhythm with heart rate 62 -Continue metoprolol, continue to monitor UTI, acute -- We will start patient on Keflex. It is in the setting of her surgery and recent Rodriguez catheterization she is at an increased risk for complications -- She is given a Keflex to complete the course Disposition: Patient is being admitted to inpatient status with expected length of stay greater than two midnights due to to severity of presentation, duration of treatment, and risks of adverse events Patient is full code until brings in her advanced directives, patient will be discharged to half-way in the a.m. if blood pressures remain stable Exam Vital Signs (Last) Date Time Temp Pulse Resp B/P Pulse Ox O2 Delivery O2 Flow Rate FiO2 06/11/17 08:30 76 121/76 06/11/17 05:59 36.5 17 96 Room Air 06/08/17 05:14 1.00 Exam Gen.: No acute distress Heart: 2+ systolic murmur, regular rate and rhythm Lungs: Clear to auscultation no crackles or wheezes Abdomen: Not nontender nondistended, soft normal bowel sounds present Extremities she is able to move her extremities negative for swelling HEENT: Normocephalic, atraumatic Musculoskeletal: She has pain with thoracic spine movement/range of motion, palpable tenderness Neurological: No focal deficits Psych: Negative for agitation and anxiety Test 06/06/17 12:18 06/06/17 13:15 06/06/17 19:07 06/07/17 04:42 Hold Purple Top Tube Received (Received) Hold Blue Top Tube Received (Received) Hemoglobin A1c 5.6% (4.8-5.6) Vitamin D 25-Hydroxy 37ng/mL (.) 25-Hydroxy Vitamin D2 <1.0ng/mL (.) 25-Hydroxy Vitamin D3 37ng/mL (.) Hold [place] Top Tube Received (Received) Hold Urine Received (Received) Urine Color Straw (YELLOW) Urine Appearance Clear (CLEAR,HAZY) Urine pH 7.0 (5.0-8.0) Urine Specific [place] 1.005 (1.003-1.035) Urine Protein Negativemg/dL (NEG,TRACE) Urine Glucose (UA) 1000mg/dL (NEGATIVE) Urine Ketones Negativemg/dL (NEGATIVE) Urine Occult Blood Trace (NEGATIVE) Urine Nitrite Negative (NEGATIVE) Urine Bilirubin Negative (NEGATIVE) Urine Urobilinogen Normalmg/dL (NORMAL) Urine Leukocyte Esterase Small (NEGATIVE) Urine RBC 3-10/hpf (0-2) Urine WBC 6-10/hpf (0-5) Urine Epithelial Cells Occasional/hpf (NONE-MOD) Urine Crystals None seen (NONE SEEN) Urine Bacteria Few/hpf (NONE-FEW) Urine Hyaline Casts None/lpf (NONE) Urine Granular Casts None seen (NONE SEEN) Urine Waxy Casts None seen (NONE SEEN) Urine Red Blood Cell Casts None seen (NONE SEEN) Urine White Blood Cell Casts None seen (NONE SEEN) Urine Mucus None seen (None Seen) Urine Trichomonas None seen (NONE SEEN) Urine Yeast None (NONE SEEN) Urinalysis Comment None Urine Culture Reflexed Indicated Magnesium Level 1.7mg/dL (1.6-2.6) Total Bilirubin 0.7mg/dL (0.0-1.2) Aspartate Amino Transf (AST/SGOT) 16U/L (0-50) Alanine Aminotransferase (ALT/SGPT) 15U/L (0-32) Alkaline Phosphatase 77U/L (25-165) Total Protein 6.6g/dL (6.4-8.4) Albumin 3.9g/dL (3.4-5.0) Test 06/08/17 04:45 06/09/17 05:00 06/10/17 11:30 Neutrophils (%) (Auto) 84.4% (40-74) Lymphocytes (%) (Auto) 7.9% (14-46) Monocytes (%) (Auto) 7.4% (4-12) Eosinophils (%) (Auto) 0% (0-5) Basophils (%) (Auto) 0.1% (0-3) White Blood Count 10.9th/mm3 (3.8-10.1) Red Blood Count 3.82mil/mm3 (3.90-5.20) Mean Corpuscular Volume 93.7fL (81-100) Mean Corpuscular Hemoglobin 30.4pg (27.0-35.0) Mean Corpuscular Hemoglobin Concent 32.4% (32.0-37.0) Red Cell Distribution Width 12.2% (12.3-15.4) Platelet Count 226bil/L (150-400) Hemoglobin 11.3g/dL (12.0-15.6) Hematocrit 34.7% (35.0-46.0) Sodium Level 140mEq/L (134-144) Potassium Level 3.7mEq/L (3.5-5.2) Chloride Level 101mEq/L (97-108) Carbon Dioxide Level 25mmol/L (18-29) Blood Urea Nitrogen 20mg/dL (8-27) Creatinine 0.46mg/dL (0.57-1.00) Estimat Glomerular Filtration Rate 187mL/min (>59) Glucose Level 60mg/dL (60-99) Calcium Level 8.8mg/dL (8.5-10.1) Total Creatine Kinase 120U/L (21-215) Creatine Kinase MB 1.0ng/mL (0.0-5.3) Creatine Kinase MB % % (0.0-5.0) Troponin T < 0.010ug/L (0.0-0.011) Discharge Medications Discharge Medications Cephalexin (Cephalexin) 500 Mg Capsule 500 MG PO BID Prescribed by: MARIE BLACKWELL DO Clonidine (Clonidine) 0.1 Mg Tablet 0.1 MG PO HS (Reported) PLEASE CRUSH AND GIVE W/ APPLESAUCE Cyanocobalamin (Vitamin B-12) (Vitamin B-12) 1,000 Mcg/1 Ml Drops 1,000 MCG PO QAM (Reported) Enoxaparin (Lovenox) 30 Mg/0.3 Ml Syringe 30 MG SUBQ Q24 Prescribed by: SALBADOR WALKER Lisinopril (Lisinopril) 40 Mg Tablet 20 MG PO QAM PLEASE CRUSH AND GIVE W/ APPLESAUCE Prescribed by: MARIE BLACKWELL DO Metformin (Metformin) 500 Mg Tablet 500 MG PO BIDWM (Reported) PLEASE CRUSH AND GIVE W/ APPLESAUCE Metoprolol Tartrate (Metoprolol Tartrate) 25 Mg Tablet 12.5 MG PO QAM (Reported ) PLEASE CRUSH AND GIVE W/ APPLESAUCE Pediatric Multivit Comb No.42 (Flintstones) 1 Each Tab.chew 1 EACH PO QAM ( Reported) PLEASE CRUSH AND GIVE W/ APPLESAUCE Potassium Chloride ER (Potassium Chloride ER) 10 Meq Tablet 10 MEQ PO BIDWM ( Reported) PLEASE CRUSH AND GIVE W/ APPLESAUCE As needed Cyclobenzaprine (Cyclobenzaprine) 5 Mg Tablet 5 MG PO BID PRN PRN Spasm Prescribed by: MARIE BLACKWELL DO Fluticasone Propionate (Fluticasone Propionate) 50 Mcg/Actuation [place].susp 1 SPRAY NS DAILY PRN PRN [place] (Reported) Hydrocodone-Acetaminophen 5-325 mg (Hydrocodone-Acetaminophen 5-325 mg) 1 Each Tablet 1 TABLET PO Q4H PRN PRN For Moderate Pain Prescribed by: SALBADOR WALKER Hydroxyzine Pamoate (Vistaril) 25 Mg Capsule 25 MG PO Q6H PRN PRN For Itching Prescribed by: SALBADOR WALKER Time spent Greater than 30 minutes was spent in preparation of discharge greater than 50% of that time is dedicated to patient counseling and coordination of care Marie Blackwell DO Jun 12, 2017 01:12
== END 2017-06-11 13:30 | DRG 470 ==
LOC: SED 11:55 → OSC 15:41
PROVIDERS: ADMIT Internal Medicine; ATTEND Internal Medicine
PROC: 0SRR0J9 Replacement of Right Hip Joint, Femoral Surface with Synthetic Substitute, Cemented, Open Approach (ICD-10-PCS; principal; 2017-06-07 14:30)
DX: S72.001A Fracture of unspecified part of neck of right femur, initial encounter for closed fracture (principal); N39.0 Urinary tract infection, site not specified; W01.0XXA Fall on same level from slipping, tripping and stumbling without subsequent striking against object, initial encounter; Y93.9 Activity, unspecified; Y92.015 Private garage of single-family (private) house as the place of occurrence of the external cause; I10 Essential (primary) hypertension; E11.9 Type 2 diabetes mellitus without complications; Z79.84 Long term (current) use of oral hypoglycemic drugs; R00.0 Tachycardia, unspecified; E86.9 Volume depletion, unspecified